=== PATIENT | female | born 1950 | race Caucasian/White ===

== ENCOUNTER 2019-10-13 05:58 | Emergency (ER) | payer MEDICARE, OTHER, SELFPAY ==
[2019-10-13] VITALS (10 sets, daily range): BP systolic 137–183; BP diastolic 64–83; PULSE 64–83; RESP 14–25; TEMP 36.7; O2SAT 90–99; BMI 29.2
--- NOTE | 2019-10-13 06:01 | DI.RAD.S_ITS ---
PROCEDURE: XR CHEST 1V INDICATIONS: Chest pain TECHNIQUE: One view of the chest was acquired. COMPARISON: [facility], , CHEST 2 VIEW, 06/28/2012, 14:28. FINDINGS: Surgical changes and devices: None. Lungs and pleura: Lungs are difficult to accurately assess due to large body habitus and reduced inspiratory volume, and lordotic positioning.. No pleural effusions or pneumothorax. Mediastinum: Mediastinal contours appear normal. Heart size is normal. Bones and chest wall: No suspicious bony lesions. Overlying soft tissues appear unremarkable. IMPRESSION: Reduced inspiration, large body habitus, lordotic positioning, no definite acute disease. Upright two view chest plain film study would more accurately assess this patient. Dictated by: Sd Batres M.D. on 10/13/2019 at 8:20 Approved by: Sd Batres M.D. on 10/13/2019 at 8:21
--- NOTE | 2019-10-13 06:20 | ED.NAVMDI ---
HPI - Nausea/Vomiting/Diarrhea <James Christianson DO - Last Filed: 10/14/19 01:38> General Chief complaint: Nausea/Vomiting/Diarrhea Stated complaint: tightness mid chest makes her throw up/vomiting Time Seen by Provider: 10/13/19 06:00 Source: patient Mode of arrival: Family Vehicle Limitations: no limitations History of Present Illness HPI Narrative: Patient is a 69-year-old female here for evaluation of a retrosternal/epigastric ?pressure? she states the symptoms have been occurring since 2100 hours last evening. She states it has been consistent since then. She states she was awake all night with discomfort. States shortly after the pressure started she developed nausea and vomiting and diarrhea. She states that the vomiting does seem to help her symptoms somewhat. When she vomits the pain seems to move higher in her chest. When she has episodes of diarrhea the discomfort does not change. No fevers. No recent travel. No recent antibiotics. No prior abdominal surgeries. Did take some Tums prior to arrival without any improvement. Related Data Previous Rx's Medication Instructions Recorded omeprazole 20 mg PO DAILY #30 cap 10/13/19 Allergies Allergy/AdvReac Type Severity Reaction Status Date / Time latex Allergy Unknown Verified 10/13/19 06:24 acetaminophen [From Percocet] AdvReac Unknown Vomiting Verified 10/13/19 06:23 oxycodone [From Percocet] AdvReac Unknown Vomiting Verified 10/13/19 06:23 Review of Systems <James Christianson DO - Last Filed: 10/14/19 01:38> Constitutional Constitutional: Denies fever(s) and Denies headache(s) ENT Ears, Nose, Mouth, and Throat: Denies headache(s) Cardiovascular Cardiovascular: Reports chest pain and Denies dyspnea Respiratory Respiratory: Denies cough and Denies dyspnea Gastrointestinal Gastrointestinal: Reports abdominal pain, Denies melena, Denies hematochezia, Reports diarrhea, Reports nausea and Reports vomiting Genitourinary Genitourinary: Denies dysuria Genitourinary: Denies dysuria Musculoskeletal Musculoskeletal: Denies arthralgias and Denies myalgias Integumentary/Breasts Skin/Breast: Denies pruritus, Denies lesions and Denies rash Neurologic Neurologic: Denies behavioral changes and Denies headache(s) Psychiatric Psychiatric: Denies behavioral changes Hematologic/Lymphatic Hematologic/Lymphatic: Denies easy bleeding and Denies easy bruising Allergic/Immunologic Allergic/Immunologic: Denies urticaria Patient History <James Christianson DO - Last Filed: 10/14/19 01:38> Medical History Allergic rhinitis (11/24/13) Hyperlipidemia (11/24/13) Stress incontinence of urine (11/24/13) Surgical History (Updated 06/23/17 @ 05:42 by Conversion Provider) History of bladder suspension procedure Status post appendectomy Status post tubal ligation Social History Smoking Status: Never smoker Smoking Status: Never smoker alcohol intake frequency: a few times a week Substance Use Type: does not use Exam <James Christianson DO - Last Filed: 10/14/19 01:38> Initial Vital Signs Initial Vital Signs: Vital Signs Temperature 98.1 F 10/13/19 06:05 Pulse Rate 77 10/13/19 06:05 Respiratory Rate 17 10/13/19 06:05 Blood Pressure 183/81 H 10/13/19 06:05 Pulse Oximetry 98 10/13/19 06:05 Const General: cooperative Limitations: mental status not altered HENMT Head: normal to inspection and normocephalic Resp Effort & Inspection: normal respiratory effort Auscultation: clear to auscultation bilaterally Cardio Rate: regular rate Rhythm: regular rhythm GI Inspection: non-distended Palpation: soft and tender Skin Lesions: no lesions Rashes: no rashes Neuro General: patient alert, patient awake and patient oriented x3 Cognition: normal cognition Speech: speech normal Extrem General: normal to inspection and capillary refill normal Psych Appearance: grossly normal and well kempt <Herbie Mason MD - Last Filed: 10/13/19 09:58> Initial Vital Signs Initial Vital Signs: Vital Signs Temperature 98.1 F 10/13/19 06:05 Pulse Rate 77 10/13/19 06:05 Respiratory Rate 17 10/13/19 06:05 Blood Pressure 183/81 H 10/13/19 06:05 Pulse Oximetry 98 10/13/19 06:05 Scores <James Christianson DO - Last Filed: 10/14/19 01:38> GCS [place] coma scale eye opening: Spontaneous [place] coma scale verbal response: Orientated [place] coma scale motor response: Obey commands [place] coma scale total score: 15 Course <James Christianson DO - Last Filed: 10/14/19 01:38> Orders Ordered: Discontinued Medications Al Hydrox/Mg Hydrox/Simethicone 20 ml/ Lidocaine HCl 15 ml 0 ml PO NOW ONE Stop: 10/13/19 06:20 Last Admin: 10/13/19 06:38 Dose: 35 ml Documented by: SHAHEEN Ketorolac Tromethamine (Toradol) 15 mg IV NOW ONE Stop: 10/13/19 07:37 Last Admin: 10/13/19 07:57 Dose: 15 mg Documented by: ASAD Pantoprazole Sodium (Protonix) 40 mg IV NOW ONE Stop: 10/13/19 06:20 Last Admin: 10/13/19 06:37 Dose: 40 mg Documented by: SHAHEEN Vital Signs Vital signs: Vital Signs - 8 hr 10/13/19 06:05 10/13/19 06:08 10/13/19 06:30 Temperature 98.1 F Pulse Rate 77 77 76 Respiratory Rate 17 20 25 H Blood Pressure 183/81 H Pulse Oximetry 98 98 99 10/13/19 06:36 10/13/19 07:00 10/13/19 07:30 Temperature Pulse Rate 71 68 82 Respiratory Rate 14 16 19 Blood Pressure 160/72 H 159/70 H 155/67 H Pulse Oximetry 99 97 99 10/13/19 08:00 10/13/19 08:01 10/13/19 08:30 Temperature Pulse Rate 64 64 78 Respiratory Rate Blood Pressure 168/75 H 159/83 H Pulse Oximetry 90 L 97 98 10/13/19 09:00 Temperature Pulse Rate 83 Respiratory Rate Blood Pressure 137/64 Pulse Oximetry 91 <Herbie Mason MD - Last Filed: 10/13/19 09:58> Course Course Narrative: Care was transitioned from Dr. Christianson at change of shift. We Reviewed her clinical presentation, as well as our workup. My exam is significant for lungs are normal, cardiac exam is normal, she has epigastric abdominal pain. Her history of a sensation moving back and forth her chest along with nausea and vomiting, and her indication that the discomfort was under the sternum, as well as ongoing epigastric pain suggest dyspepsia. Her complaint sounds like hiatal hernia or GERD. I think the epigastric pain was somewhat related to muscle strain from repetitive vomiting. Toradol did decrease the pain. Vomiting has ceased. I have discharged on prosthetic 40 mg daily for 1 week then 20 mg daily. She lives here and in [place], I suggested she is a local doctor. She should return the ER if symptoms escalate. Marifer Ballard MD Orders Ordered: Discontinued Medications Al Hydrox/Mg Hydrox/Simethicone 20 ml/ Lidocaine HCl 15 ml 0 ml PO NOW ONE Stop: 10/13/19 06:20 Last Admin: 10/13/19 06:38 Dose: 35 ml Documented by: SHAHEEN Ketorolac Tromethamine (Toradol) 15 mg IV NOW ONE Stop: 10/13/19 07:37 Last Admin: 10/13/19 07:57 Dose: 15 mg Documented by: ASAD Pantoprazole Sodium (Protonix) 40 mg IV NOW ONE Stop: 10/13/19 06:20 Last Admin: 10/13/19 06:37 Dose: 40 mg Documented by: SHAHEEN Vital Signs Vital signs: Vital Signs - 8 hr 10/13/19 06:05 10/13/19 06:08 10/13/19 06:30 Temperature 98.1 F Pulse Rate 77 77 76 Respiratory Rate 17 20 25 H Blood Pressure 183/81 H Pulse Oximetry 98 98 99 10/13/19 06:36 10/13/19 07:00 10/13/19 07:30 Temperature Pulse Rate 71 68 82 Respiratory Rate 14 16 19 Blood Pressure 160/72 H 159/70 H 155/67 H Pulse Oximetry 99 97 99 10/13/19 08:00 10/13/19 08:01 10/13/19 08:30 Temperature Pulse Rate 64 64 78 Respiratory Rate Blood Pressure 168/75 H 159/83 H Pulse Oximetry 90 L 97 98 10/13/19 09:00 Temperature Pulse Rate 83 Respiratory Rate Blood Pressure 137/64 Pulse Oximetry 91 MDM - Nausea/Vomiting/Diarrhea <James Christianson DO - Last Filed: 10/14/19 01:38> Lab Data Attestation: I reviewed the patient's lab results. Result diagrams: 10/13/19 06:30 10/13/19 06:30 Labs: Lab Results 10/13/19 10/13/19 10/13/19 Range/Units 06:30 06:30 06:30 WBC 11.8 H (4.5-11.0) X10^3/uL RBC 4.82 (4.0-5.2) X10^6/uL Hgb 13.8 (12.0-16.0) g/dL Hct 40.6 (36-46) % MCV 84.1 (80-100) fL MCH 28.6 (26-34) PG MCHC 34.0 (30-36) % RDW 14.7 (11.6-14.8) % Plt Count 448 H (150-400) X10^3/uL Neut % (Auto) 91.9 H (50-75) % Lymph % (Auto) 4.8 L (25-40) % [place] % (Auto) 2.5 L (3-14) % Eos % (Auto) 0.2 L (2-4) % Baso % (Auto) 0.6 (0-2) % Neut # (Auto) 69806 H (5804-9621) /uL Lymph # (Auto) 600 L (8458-4023) /uL [place] # (Auto) 300 (0-900) /uL Eos # (Auto) 0 (0-450) /uL Baso # (Auto) 100 (0-100) /uL Sodium 134 L (137-145) mmol/L Potassium 4.0 (3.4-5.1) mmol/L Chloride 103 (98-107) mmol/L Carbon Dioxide 24 (22-32) mmol/L BUN 19 H (7-17) mg/dL Creatinine 0.78 (0.52-1.04) mg/dL Estimated GFR > 60.0 (>60) mL/min BUN/Creatinine Ratio 24.4 H (6-22) Glucose 140 H (80-110) mg/dL Calcium 9.2 (8.4-10.2) mg/dL Total Bilirubin 0.7 (0.2-1.3) mg/dL AST 39 H (14-36) IU/L ALT 25 (<35) IU/L Alkaline Phosphatase 60 (38-126) U/L Total Creatine Kinase 199 H (30-135) U/L CK-MB (CK-2) 3.19 H (<2.37) ng/mL CK-MB (CK-2) Rel Index 1.6 (1.5-5.0) % Troponin I < 0.012 (0.01-0.034) ng/mL Total Protein 6.9 (6.3-8.2) g/dL Albumin 4.5 (3.5-5.0) g/dL Globulin 2.4 (1.7-4.1) g/dL Albumin/Globulin Ratio 1.9 (1.0-2.8) Lipase 79 (23-300) U/L Imaging Data Chest x-ray: Attestation: I personally reviewed and interpreted this imaging study as follows: My Impression: Poor inspiratory volumes, no pneumothorax, no acute pathology ECG Data Attestation: I personally reviewed and interpreted this ECG as follows: Prior ECG tracings: not available for review Interpretation: Sinus rhythm Ventricular rate of 65 Normal axis Normal QRS Normal QTC No ST T wave changes MDM Narrative Medical decision making narrative: Symptoms seem very GI related. Trop pending. Care turned over to Day provder at change of shift to follow up and dispo. <Herbie Mason MD - Last Filed: 10/13/19 09:58> Lab Data Labs: Lab Results 10/13/19 10/13/19 10/13/19 Range/Units 06:30 06:30 06:30 WBC 11.8 H (4.5-11.0) X10^3/uL RBC 4.82 (4.0-5.2) X10^6/uL Hgb 13.8 (12.0-16.0) g/dL Hct 40.6 (36-46) % MCV 84.1 (80-100) fL MCH 28.6 (26-34) PG MCHC 34.0 (30-36) % RDW 14.7 (11.6-14.8) % Plt Count 448 H (150-400) X10^3/uL Neut % (Auto) 91.9 H (50-75) % Lymph % (Auto) 4.8 L (25-40) % [place] % (Auto) 2.5 L (3-14) % Eos % (Auto) 0.2 L (2-4) % Baso % (Auto) 0.6 (0-2) % Neut # (Auto) 29026 H (4135-0789) /uL Lymph # (Auto) 600 L (4383-4095) /uL [place] # (Auto) 300 (0-900) /uL Eos # (Auto) 0 (0-450) /uL Baso # (Auto) 100 (0-100) /uL Sodium 134 L (137-145) mmol/L Potassium 4.0 (3.4-5.1) mmol/L Chloride 103 (98-107) mmol/L Carbon Dioxide 24 (22-32) mmol/L BUN 19 H (7-17) mg/dL Creatinine 0.78 (0.52-1.04) mg/dL Estimated GFR > 60.0 (>60) mL/min BUN/Creatinine Ratio 24.4 H (6-22) Glucose 140 H (80-110) mg/dL Calcium 9.2 (8.4-10.2) mg/dL Total Bilirubin 0.7 (0.2-1.3) mg/dL AST 39 H (14-36) IU/L ALT 25 (<35) IU/L Alkaline Phosphatase 60 (38-126) U/L Total Creatine Kinase 199 H (30-135) U/L CK-MB (CK-2) 3.19 H (<2.37) ng/mL CK-MB (CK-2) Rel Index 1.6 (1.5-5.0) % Troponin I < 0.012 (0.01-0.034) ng/mL Total Protein 6.9 (6.3-8.2) g/dL Albumin 4.5 (3.5-5.0) g/dL Globulin 2.4 (1.7-4.1) g/dL Albumin/Globulin Ratio 1.9 (1.0-2.8) Lipase 79 (23-300) U/L Discharge Plan Departure Patient Disposition: Home Clinical Impression: Abdominal pain, epigastric Discharge Date/Time: 10/13/19 09:36 Instructions: DI for Gastroesophageal Reflux Disease (GERD) Activity Restrictions/Additional Instructions: Your symptoms likely represent acid reflux or hiatal hernia. I am going to start you on Prilosec. Take 2 tabs daily for the 1st week, then 1 tablet daily. You need to find a local physician for follow-up. If symptoms escalate she may need endoscopy, a scope into stomach. Return the ER if symptoms escalate. Prescriptions: New omeprazole 20 mg capsule,delayed release(DR/EC) 20 mg PO DAILY Qty: 30 RF: 0
[2019-10-13] MEDS: PANTOPRAZOLE 40 MG VIAL IV (06:37)
[2019-10-13] MEDS: MAG HYDROX/ALUMINUM/SIMETH SUS 20 ML, LIDOCAINE VISCOUS 2% 15 ML PO (06:38)
[2019-10-13 06:43] LABS: Add Manual Diff / Slide Review NO; Basophils Absolute Auto 100 /uL (0-100); Basophils Percent Auto 0.6 % (0-2); Eosinophils Absolute Auto 0 /uL (0-450); Eosinophils Percent Auto 0.2 % (2-4); Hematocrit 40.6 % (36-46); Hemoglobin 13.8 g/dL (12.0-16.0); Lymphocytes Absolute Auto 600 /uL (1100-4500); Lymphocytes Percent Auto 4.8 % (25-40); Mean Corpuscular Hemoglobin 28.6 PG (26-34); Mean Corpuscular Volume 84.1 fL (80-100); Monocytes Absolute Auto 300 /uL (0-900); Monocytes Percent Auto 2.5 % (3-14); Neutrophils Absolute Auto 10800 /uL (1500-7000); Neutrophils Percent Auto 91.9 % (50-75); Platelet Count 448 X10^3/uL (150-400); Red Blood Cell Count 4.82 X10^6/uL (4.0-5.2); Red Cell Distribution Width 14.7 % (11.6-14.8); White Blood Cell Count 11.8 X10^3/uL (4.5-11.0)
[2019-10-13 07:02] LABS: Alanine Aminotransferase 25 IU/L (<35); Albumin 4.5 g/dL (3.5-5.0); Albumin Globulin Ratio 1.9 (1.0-2.8); Alkaline Phosphatase 60 U/L (38-126); Aspartate Aminotransferase 39 IU/L (14-36); BUN Creatinine Ratio 24.4 (6-22); Bilirubin Total 0.7 mg/dL (0.2-1.3); Blood Urea Nitrogen 19 mg/dL (7-17); Calcium 9.2 mg/dL (8.4-10.2); Carbon Dioxide 24 mmol/L (22-32); Chloride 103 mmol/L (98-107); Creatine Kinase 199 U/L (30-135); Estimated Glomerular Filt Rate > 60.0 mL/min (>60); Globulin 2.4 g/dL (1.7-4.1); Glucose 140 mg/dL (80-110); HEMOLYSIS < 15 (0-50); Lipase 79 U/L (23-300); Sodium 134 mmol/L (137-145); Total Protein 6.9 g/dL (6.3-8.2)
[2019-10-13 07:14] LABS: Troponin I < 0.012 ng/mL (0.01-0.034)
[2019-10-13 07:18] LABS: CKMB % Relative Index 1.6 % (1.5-5.0); Creatine Kinase MB 3.19 ng/mL (<2.37)
[2019-10-13] MEDS: KETOROLAC 60 MG/2 ML VIAL 15 MG IV (07:57)
== END 2019-10-13 09:36 | disposition home or self-care (01) ==
PROVIDERS: Emergency Provider Emergency Medicine; Referring Provider Emergency Medicine
DX: R07.89 Other chest pain (principal); R10.13 Epigastric pain
CPT/HCPCS: 36415; 71045; 80053; 82550; 82553; 83690; 84484; 85025; 93005; 93010; 96374; 96375; 99284; C9113; J1885

== ENCOUNTER → 2019-11-10 08:38 | Outpatient (CLI) | payer MEDICARE, OTHER, SELFPAY ==
[2019-11-10 09:33] LABS: Add Manual Diff / Slide Review NO; Basophils Absolute Auto 100 /uL (0-100); Basophils Percent Auto 1.3 % (0-2); Eosinophils Absolute Auto 300 /uL (0-450); Eosinophils Percent Auto 4.9 % (2-4); Hematocrit 40.7 % (36-46); Hemoglobin 13.6 g/dL (12.0-16.0); Lymphocytes Absolute Auto 1200 /uL (1100-4500); Lymphocytes Percent Auto 18.3 % (25-40); Mean Corpuscular HGB Conc 33.4 % (30-36); Monocytes Absolute Auto 400 /uL (0-900); Monocytes Percent Auto 5.8 % (3-14); Neutrophils Absolute Auto 4400 /uL (1500-7000); Neutrophils Percent Auto 69.7 % (50-75); Platelet Count 426 X10^3/uL (150-400); Red Blood Cell Count 4.84 X10^6/uL (4.0-5.2); Red Cell Distribution Width 14.2 % (11.6-14.8); White Blood Cell Count 6.4 X10^3/uL (4.5-11.0)
[2019-11-10 09:56] LABS: Alanine Aminotransferase 36 IU/L (<35); Albumin Globulin Ratio 1.5 (1.0-2.8); Alkaline Phosphatase 67 U/L (38-126); Aspartate Aminotransferase 42 IU/L (14-36); BUN Creatinine Ratio 15.8 (6-22); Bilirubin Total 0.6 mg/dL (0.2-1.3); Blood Urea Nitrogen 15 mg/dL (7-17); Calcium 9.2 mg/dL (8.4-10.2); Carbon Dioxide 30 mmol/L (22-32); Chloride 103 mmol/L (98-107); Cholesterol 217 mg/dL (140-199); Estimated Glomerular Filt Rate 58.3 mL/min (>60); Globulin 2.6 g/dL (1.7-4.1); Glucose 104 mg/dL (80-110); HDL Cholesterol 54 mg/dL (40-60); HEMOLYSIS < 15 (0-50); LDL Cholesterol Calculated 145 mg/dL (<100); Potassium 4.6 mmol/L (3.4-5.1); Sodium 139 mmol/L (137-145); Total Protein 6.6 g/dL (6.3-8.2); Triglycerides 88 mg/dL (35-150)
[2019-11-10 10:30] LABS: TSH w/ Reflex to FT4 3.12 uIU/mL (0.47-4.68)
== END ==
PROVIDERS: PCP Registered Nurse Diabetes Educator; Referring Provider Registered Nurse Diabetes Educator; Visit Provider Registered Nurse Diabetes Educator
DX: Z00.00 Encounter for general adult medical examination without abnormal findings (principal); E78.5 Hyperlipidemia, unspecified
CPT/HCPCS: 36415; 80053; 80061; 84443; 85025

== ENCOUNTER → 2019-11-22 07:40 | Outpatient (CLI) | payer MEDICARE, OTHER, SELFPAY ==
--- NOTE | 2019-11-22 07:43 | DI.US.S_ITS ---
PROCEDURE: US ABDOMEN LIMITED INDICATIONS: LIVER FUNCTION TEST. PRIOR EPIGASTRIC PAIN NAUSEA/VOMITING TECHNIQUE: Real-time focused scanning was performed of the abdomen, with image documentation. COMPARISON: None. FINDINGS: The liver is normal in size and demonstrates no focal lesions. The liver demonstrates normal echogenicity. There is a nonmobile shadowing gallstone seen that measures up to 2.4 cm. Minimal gallbladder wall thickening is seen, measuring 3.3 mm No specific pericholecystic fluid is seen. The sonographic Olivia sign is negative. There is no biliary dilatation, the common bile duct measures 6 mm. The pancreas is not well seen, secondary to overlying bowel gas. IMPRESSION: A single shadowing 2.4 cm gallstone is seen, with minimal gallbladder wall thickening. No additional sonographic signs of cholecystitis. Negative for biliary dilatation. Please correlate with physical examination findings, patient presentation, and laboratory values. Dictated by: Mick Keene M.D. on 11/22/2019 at 10:12 Approved by: Mick Keene M.D. on 11/22/2019 at 10:14
[2019-11-22 09:54] LABS: HEMOLYSIS < 15 (0-50); Iron 86 ug/dL (37-170)
[2019-11-22 10:05] LABS: Transferrin 255 mg/dL (206-381)
[2019-11-22 10:29] LABS: Hepatitis B Surface Antigen NEGATIVE s/c (NEGATIVE)
[2019-11-22 10:53] LABS: Percent Iron Saturation 28 % (15-50); Total Iron Binding Capacity 310 ug/dL (265-497)
[2019-11-22 10:57] LABS: Hep C Virus Ab w/Reflex Quant NEGATIVE s/c (NEGATIVE)
== END ==
PROVIDERS: PCP Registered Nurse Diabetes Educator; Referring Provider Registered Nurse Diabetes Educator; Visit Provider Registered Nurse Diabetes Educator
DX: R74.8 Abnormal levels of other serum enzymes (principal); R11.2 Nausea with vomiting, unspecified; K80.20 Calculus of gallbladder without cholecystitis without obstruction
CPT/HCPCS: 36415; 76705; 83540; 83550; 86803; 87340

== ENCOUNTER → 2019-12-03 14:59 | Outpatient (CLI) | payer MEDICARE, OTHER, SELFPAY ==
[2019-12-05 07:52] LABS: COVID19 Sendout Not Detected (Not Detect)
== END ==
PROVIDERS: PCP Registered Nurse Diabetes Educator; Visit Provider Physician Assistant
DX: Z01.812 Encounter for preprocedural laboratory examination (principal)
CPT/HCPCS: 87635

== ENCOUNTER 2019-12-06 13:48 | Inpatient (IN) | payer MEDICARE, OTHER, SELFPAY ==
[2019-12-02 10:47] VITALS: BMI 26.3
[2019-12-06] VITALS (17 sets, daily range): BP systolic 100–127; BP diastolic 45–74; PULSE 79–91; RESP 7–22; TEMP 36.2–37.1; O2SAT 70–100; BMI 26.3
--- NOTE | 2019-12-06 | PATH_ITS ---
[facility] Accession Number: [id number] . 01 Material submitted: . gallbladder - GALLBLADDER . 02 Diagnosis: Gallbladder, Cholecystectomy: Cholelithiasis with chronic, mild active cholecystitis. No evidence of neoplasm. MRV 12/09/2019 1141 Local . 02 Electronically signed: . Oliver Akhtar MD, PhD, Pathologist NPI- [id number] . 01 Gross description: . Received in formalin, labeled gallbladder, and consists of a fragmented gallbladder measuring 6.0 x 4.0 x 2.5 cm in aggregate. The serosa is riojas-white to riojas-pink and focally hemorrhagic with purulent exudate. Due to the fragmented nature of the specimen, an obvious cystic duct is not identified. Further opening reveals a pink-red to riojas-white velvety to trabeculated mucosa. The wall thickness measures up to 0.4 cm. Received within the specimen container is a 3.5 x 2.5 x 2.0 cm riojas-green bosselated cholelith. Director [employer] Services sections are submitted, to include the area of presumed cystic duct (inked green) in cassette A1. ([id number]) /MRV 12/09/2019 1140 Local . 02 Pathologist provided ICD-10: K80.50, K80.60 . 02 CPT . 084833 Performed at: 01 [facility] [address] [place] [address], [place], [place] [id number] MD Lucas Pelaez MD Phone: [phone] Performed at: 02 [facility] [address] [place], [place] [id number] MD Sabra Ramirez MD Phone: [phone]
[2019-12-06] MEDS: LACTATED RINGERS 1,000 ML 100 ML IV ×2 (14:30→18:05)
--- NOTE | 2019-12-06 15:50 | P.OP_ITS ---
Operative Date/Time/Diagnoses Date of procedure: 12/06/19 Time of procedure: 15:50 Pre-op diagnosis: endometrial cancer Post-op diagnosis: same Procedure & Clinicians Procedure: port a cath placement Same procedure as scheduled: Yes Indications: 69-year-old woman with endometrial cancer here for Port-A-Cath placement Surgeon: Dieter Becerra Anesthesia Type: General Operative Notes Findings: Chest x-ray no pneumothorax, tip of catheter within the SVC Specimen(s): none sent Estimated Blood Loss (mL): 20 Procedure in detail: Patient was brought to the operating room placed supine on table. Bilateral lower extremity compressive devices were applied. General anesthesia was induced and he was intubated with an LMA. He was then prepped and draped in usual sterile fashion. Time-out was performed ensure the correct patient procedure necessary equipment within the operating room. He received 2 g of Ancef prior to incision. Under ultrasound guidance the right internal jugular vein was accessed under direct visualization. The guidewire was then threaded through the needle. Its placement was then confirmed using fl uoroscopy. The dilator was then placed over the guidewire. The catheter was then inserted through the sheath. Placement was again confirmed with fluoroscopy. A subcutaneous pocket was made in the right chest wall. The tunneler device was used to move the catheter from the neck to the chest pocket. The port was attached after it was primed with heparined saline. The port was tested to ensure that it flushed easily and had good blood return. The port was then secured to the underlying fascia using interupted 0 Prolene suture. Hemostasis was achieved. The wound was irrigated with sterile saline. The subcutaneous tissues were reapproximated with the 3 0 Vicryl and then skin closed with 4-0 Monocryl. The skin was sealed with Dermabond. Patient tolerated procedure well. The sponge and instrument count at the end operation was correct. Patient emerged from general anesthesia was extubated and taken to the postoperative care unit in stable condition Complications: none Post-operative Condition: stable Disposition: same day surgery
--- NOTE | 2019-12-06 15:54 | PM.PREOP ---
Pre-operative Note COVID-19 COVID-19 status: Negative Interval Note History & Physical reviewed/Exam performed by Physician: Yes Changes to H&P: No
[2019-12-06] MEDS: CEFAZOLIN 2 GM/100 ML FROZ.PIGGY IV ×2 (16:02→19:32)
--- NOTE | 2019-12-06 16:25 | SUR.OPER ---
Supine on padded OR bed, head on pillow, left arm padded and tucked at side,right arm on padded arm board and secured at les than 90 degrees abduction legs uncrossed, safety belt at thigh, tape over blanket over lower legs .
[2019-12-06] MEDS: BUPIVACAINE 0.25% (PF) VIAL 30 ML INJ (16:33)
[2019-12-06] MEDS: SODIUM CHLORIDE 0.9% 1,000 ML 100 ML IV (20:00)
--- NOTE | 2019-12-06 20:14 | P.OP_ITS ---
Operative Date/Time/Diagnoses Date of procedure: 12/06/19 Time of procedure: 20:14 Pre-op diagnosis: Biliary colic Post-op diagnosis: same Procedure & Clinicians Procedure: Laparoscopic subtotal cholecystectomy Same procedure as scheduled: Yes Indications: This is a 69-year-old woman with episodes of biliary colic is found to have a 2-1/2 cm gallstone here for elective cholecystectomy Surgeon: Dieter Becerra Toy Assembly Supervisor: Demond Toro Anesthesia Type: General Operative Notes Estimated Blood Loss (mL): 50 Procedure in detail: The patient was placed supine on the table and bilateral lower extremity compression devices were applied. Anesthesia was induced they were intubated with an endotracheal tube and received 2g of Ancef. A time-out was performed. They were prepped and draped in sterile fashion. An infraumbilical incision was made, the umbilical stalk was elevated and the fascia was sharply incised entering the abdomen atraumatically. A blunt tip 12mm balloon trocar was then inserted, pneumoperitoneum was established and inspection of the abdomen demonstrated no evidence of injury. They were placed head up and right side up and then a 11 mm port was placed high in the epigastrium and two 5mm in the right upper quadrant. The gallbladder was extremely thick and difficult to grasp. Gallbladder was percutaneously aspirated to facilitate its manipulation. Gallbladder was then grasped and elevated superiorly over the liver and out laterally. The adhesions between the omentum and the gallbladder were sharply lysed. The infundibulum was then grasped and retracted laterally the infundibulum was extremely thick. The medial and lateral planes adjacent to the infundibulum were incisied to facilitate its medial and lateral retraction. I began skeltonizing at the base of the gallbladder using careful blunt dissection. The anatomy here was very difficult because of the extremely contracted nature and the density of the tissue. I called for the assistance of my partner. Multiple ductal structures were carefully issolated which in full review likely represented the common hepatic duct, an extremely foreshortned cystic duct, and an abberent right hepatic. I attempted to performed a cholangiogram through the gallbladder to clarify the anatomy and but this was unsuccessful as the contrast material leaked from the gallbladder. Unable to get a cholangiogram I moved to a top- down dissection. The gallbladder was entered there was a 2-1/2 cm stone within it completely occluding its lumen and a subtotal cholecystectomy was performed towards the base of the gallbladder. At the base the gallbladder working within the lumen of the gallbladder I was still unable to identify the cystic duct. The back wall the gallbladder was then excised. I closed the remnant of the gallbladder with interrupted Vicryl suture in intracorporeal fashion. Careful inspection of the ductal structures demonstrated a <1 mm length partial thickeness injury to the lateral aspect of the likely cystic duct near its junction to the common. The wall was intact here there was no bile leak. A 19F AMANDA was placed in the gallbladder fossa. The gallbladder and the stone were removed via the umbilicus with an Endocatch. The umbilical fascia was closed under direct visualization with [id number] 0 Vicryl suture the skin closed with Monocryl followed by Dermabond.
[2019-12-06] MEDS: HYDROMORPHONE 2 MG INJ IV ×4 (20:16→20:34)
[2019-12-06] MEDS: LORazepam 2 MG/ML INJ 0.25 MG IV ×2 (20:18→20:53)
[2019-12-06] MEDS: OXYCODONE/ACETAMINOPHEN 5/325 TABLET 1 TAB PO (20:51)
--- NOTE | 2019-12-06 20:58 | SUR.PHASEI ---
Report called to Salma
--- NOTE | 2019-12-06 21:23 | SUR.PHASEI ---
Patient transferred to the floor on O2 and with belongings bag. Report given to TAMERA Marsh. VS stable. Abd sites CDI, minimal drainage to drain. J-loop applied to IV and IV saline locked.
--- NOTE | 2019-12-06 23:58 | PC.NURSE ---
Report received from ED, care assumed at 2114. VSS. A&Ox3. Reports RUQ pain with inspiration. Ice pack applied. Up to bathroom; void.
[2019-12-07] VITALS (8 sets, daily range): BP systolic 114–132; BP diastolic 56–68; PULSE 69–84; RESP 16–18; TEMP 35.9–37.1; O2SAT 92–97
[2019-12-07] MEDS: ONDANSETRON 4 MG/2 ML INJ IV (05:25)
[2019-12-07] MEDS: OXYCODONE/ACETAMINOPHEN 5/325 TABLET 1 TAB PO ×3 (05:25→13:30)
[2019-12-07 05:31] LABS: Alanine Aminotransferase 83 IU/L (<35); Albumin 3.6 g/dL (3.5-5.0); Albumin Globulin Ratio 1.7 (1.0-2.8); Alkaline Phosphatase 57 U/L (38-126); Aspartate Aminotransferase 112 IU/L (14-36); BUN Creatinine Ratio 18.2 (6-22); Bilirubin Total 0.4 mg/dL (0.2-1.3); Blood Urea Nitrogen 14 mg/dL (7-17); Calcium 8.6 mg/dL (8.4-10.2); Carbon Dioxide 26 mmol/L (22-32); Chloride 105 mmol/L (98-107); Estimated Glomerular Filt Rate > 60.0 mL/min (>60); Globulin 2.1 g/dL (1.7-4.1); Glucose 132 mg/dL (80-110); HEMOLYSIS < 15 (0-50); Potassium 4.7 mmol/L (3.4-5.1); Sodium 136 mmol/L (137-145); Total Protein 5.7 g/dL (6.3-8.2)
[2019-12-07 05:38] LABS: Add Manual Diff / Slide Review NO; Basophils Absolute Auto 0 /uL (0-100); Basophils Percent Auto 0.4 % (0-2); Eosinophils Absolute Auto 0 /uL (0-450); Hematocrit 37.8 % (36-46); Lymphocytes Absolute Auto 400 /uL (1100-4500); Lymphocytes Percent Auto 3.6 % (25-40); Mean Corpuscular HGB Conc 34.5 % (30-36); Mean Corpuscular Hemoglobin 28.8 PG (26-34); Mean Corpuscular Volume 83.4 fL (80-100); Monocytes Absolute Auto 400 /uL (0-900); Monocytes Percent Auto 3.9 % (3-14); Neutrophils Absolute Auto 9800 /uL (1500-7000); Neutrophils Percent Auto 92.1 % (50-75); Platelet Count 331 X10^3/uL (150-400); Red Blood Cell Count 4.53 X10^6/uL (4.0-5.2); Red Cell Distribution Width 14.9 % (11.6-14.8); White Blood Cell Count 10.7 X10^3/uL (4.5-11.0)
[2019-12-07] MEDS: SODIUM CHLORIDE 0.9% 1,000 ML 100 ML IV (07:43)
[2019-12-07] MEDS: PANTOPRAZOLE 20 MG TABLET PO (09:26)
[2019-12-07] MEDS: OXYBUTYNIN 5 MG TABLET 10 MG PO (09:26)
[2019-12-07] MEDS: PIPERACILLIN-TAZO 3.375 GM/50 ML FROZ.PIGGY IV ×3 (09:26→21:26)
--- NOTE | 2019-12-07 10:45 | P.PN_ITS ---
Subjective Subjective Date Patient Seen: 12/07/19 Time Patient Seen: 10:45 Interval history: No acute overnight events. She has right upper quadrant pain no nausea vomiting. Tolerating clear liquids. Exam Vital Signs (past 8 hours): - 12/07/19 05:24 12/07/19 07:52 12/07/19 08:00 Temperature 96.7 F L 98.7 F Pulse Rate 82 84 78 Respiratory Rate 16 16 16 Blood Pressure 132/68 120/68 Pulse Oximetry 94 92 93 Oxygen Delivery Method Room Air Oxygen Flow Rate 0 Narrative Exam Narrative: General adult female alert oriented no acute distress Abdomen appropriately tender to palpation incisions clean dry intact. Right upper quadrant drain scant 10 mL output serosanguineous no bile Objective Labs Result Diagrams: 12/07/19 04:40 12/07/19 04:40 Labs: Laboratory Results - last 24 hr 12/07/19 12/07/19 04:40 04:40 WBC 10.7 RBC 4.53 Hgb 13.0 Hct 37.8 MCV 83.4 MCH 28.8 MCHC 34.5 RDW 14.9 H Plt Count 331 Neut % (Auto) 92.1 H Lymph % (Auto) 3.6 L [place] % (Auto) 3.9 Eos % (Auto) 0.0 L Baso % (Auto) 0.4 Neut # (Auto) 9800 H Lymph # (Auto) 400 L [place] # (Auto) 400 Eos # (Auto) 0 Baso # (Auto) 0 Sodium 136 L Potassium 4.7 Chloride 105 Carbon Dioxide 26 BUN 14 Creatinine 0.77 Estimated GFR > 60.0 BUN/Creatinine Ratio 18.2 Glucose 132 H Calcium 8.6 Total Bilirubin 0.4 AST 112 H ALT 83 H Alkaline Phosphatase 57 Total Protein 5.7 L Albumin 3.6 Globulin 2.1 Albumin/Globulin Ratio 1.7 Assessment & Plan Post-op Postoperative Procedures: Procedures Operation Date: 12/06/19 15:45 Actual Procedures Side Surgeon p Laparoscopic Cholecystectomy Dieter Becerra MD Postoperative status narrative: 69-year-old female postoperative day 1 after a l aparoscopic subtotal cholecystectomy. She had an extremely difficult cholecystectomy, the entirety of the gallbladder could not be removed, the remant of the gallbladder was oversewn drain left in the gallbladder fossa. -Regular diet -Drain teaching will dc with drain -Anticipate dc home tomorrow if drain non bilious and pain adequately controlled.
--- NOTE | 2019-12-07 11:17 | CM.DPC ---
DCP/Assessment: Reviewed chart. Patient is a 69yr old female admitted to [facility] for elective lap blaise performed on 12-06-[address] Becerra. PCP is Jean Carlos MARES at [facility]. Primary payor is 1)Medicare 2)[employer]. Met with patient explained CM/SW role. Patient alert and oriented resting in bed at time of visit. Patient resides alone in [place]. Patient does report that she has very supportive family nearby to assist as needed. Patient complains of pain during assessment. Patient hopeful that she will not be discharged too soon. Instructed pateint to have that conversation with provider. Patient made aware that once she no longer meets acute care criteria she will most likely be discharged. Patient does not anticipate any d/c planning needs. Per patient's request BRAILLE TRANSCRIBER placed call to [facility] and let them know patient currently hospitalized. P: Anticipate home when medically stable. LORRAINE Wahl Discharge Planning/Care Management CM Discharge Assessment Start: 12/07/19 11:15 Freq: Status: Active Protocol: Document 12/07/19 11:15 KJS (Rec: 12/07/19 11:17 KJS [id number]) Discharge Planning Assessment Assigned Irrigationist LORRAINE Wahl Contact Information Artur Garcia (son) Advance Directives? No History Provided By Patient,Medical Record Prior Living Arrangements House Household Members none Type of transporation used prior to Drives own vehicle admit Independent with ADL's Yes Is patient alert and oriented? Yes Caregiver for Another No Barriers to Discharge No Discharge Plan Home Transportation Arrangement Family to provide transport when paient medically stable. Whiteboard Updated in Patient Room with Yes name and ext. 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 No Hx Sleep Apnea No Currently Taking a Beta Mary No Hx Chest Pain No Hx SOB No Hx Syncope or Dizziness No Anti-Coagulant Therapy No Has a Asphalt Tamping Machine Operator No Cardiac Testing No Hx Pacemaker/ICD No Pacemaker Rep Required? No Cardiac Clearance Received Not Applicable Urinary Catheter Present No Hx Urinary Self Catheterization No Diabetes No Patient No Lactating No Presence of External or Internal Medical No Devices Have you had any close contact with Unknown someone diagnosed with COVID-19? Lives With none Patient Discharge Plan Description Return Home Advance Directives? No
[2019-12-07] MEDS: OXYCODONE/ACETAMINOPHEN 5/325 TABLET 2 TAB PO ×2 (17:33→21:27)
--- NOTE | 2019-12-07 19:22 | PC.NURSE ---
Patient in bed most of the shift. Up to the chair for dinner. Ambulated in room after dinner. Pain controlled well with oxycodone. Patient has been A&O, calm and cooperative.
[2019-12-08] VITALS: BP 124/63; PULSE 76; RESP 20; TEMP 35.8; O2SAT 93
[2019-12-08 01:00] VITALS: O2SAT 93
[2019-12-08] MEDS: OXYCODONE/ACETAMINOPHEN 5/325 TABLET 2 TAB PO ×2 (01:09→08:30)
[2019-12-08] MEDS: PIPERACILLIN-TAZO 3.375 GM/50 ML FROZ.PIGGY IV ×2 (03:04→08:23)
[2019-12-08 05:00] VITALS: O2SAT 92
[2019-12-08 05:04] LABS: Add Manual Diff / Slide Review NO; Basophils Absolute Auto 100 /uL (0-100); Basophils Percent Auto 1.1 % (0-2); Eosinophils Absolute Auto 300 /uL (0-450); Eosinophils Percent Auto 3.6 % (2-4); Hematocrit 37.4 % (36-46); Hemoglobin 12.5 g/dL (12.0-16.0); Lymphocytes Absolute Auto 1200 /uL (1100-4500); Lymphocytes Percent Auto 15.4 % (25-40); Mean Corpuscular HGB Conc 33.5 % (30-36); Mean Corpuscular Hemoglobin 28.2 PG (26-34); Mean Corpuscular Volume 84.1 fL (80-100); Monocytes Absolute Auto 500 /uL (0-900); Monocytes Percent Auto 6.8 % (3-14); Neutrophils Absolute Auto 5800 /uL (1500-7000); Neutrophils Percent Auto 73.1 % (50-75); Platelet Count 274 X10^3/uL (150-400); Red Blood Cell Count 4.45 X10^6/uL (4.0-5.2); Red Cell Distribution Width 14.9 % (11.6-14.8); White Blood Cell Count 7.9 X10^3/uL (4.5-11.0)
[2019-12-08 05:07] VITALS: BP 126/79; PULSE 68; RESP 20; TEMP 37.2; O2SAT 92
[2019-12-08 05:11] LABS: Alanine Aminotransferase 93 IU/L (<35); Albumin 3.1 g/dL (3.5-5.0); Albumin Globulin Ratio 1.3 (1.0-2.8); Alkaline Phosphatase 55 U/L (38-126); Aspartate Aminotransferase 100 IU/L (14-36); BUN Creatinine Ratio 12.4 (6-22); Bilirubin Total 0.9 mg/dL (0.2-1.3); Blood Urea Nitrogen 12 mg/dL (7-17); Calcium 8.1 mg/dL (8.4-10.2); Carbon Dioxide 29 mmol/L (22-32); Chloride 106 mmol/L (98-107); Estimated Glomerular Filt Rate 56.9 mL/min (>60); Globulin 2.3 g/dL (1.7-4.1); Glucose 105 mg/dL (80-110); HEMOLYSIS < 15 (0-50); Potassium 4.3 mmol/L (3.4-5.1); Sodium 137 mmol/L (137-145); Total Protein 5.4 g/dL (6.3-8.2)
[2019-12-08] MEDS: ENOXAPARIN 40 MG/0.4 ML SYRINGE SUBCUT (08:22)
[2019-12-08] MEDS: PANTOPRAZOLE 20 MG TABLET PO (08:23)
[2019-12-08] MEDS: OXYBUTYNIN 5 MG TABLET 10 MG PO (08:23)
[2019-12-08 08:30] VITALS: O2SAT 91
[2019-12-08] MEDS: SIMETHICONE 80 MG TABLET PO (08:58)
[2019-12-08 09:00] VITALS: BP 126/69; PULSE 74; RESP 16; TEMP 36.4; O2SAT 91
--- NOTE | 2019-12-08 11:00 | PC.NURSE ---
Pt is dressed and ready for discharge home with family. Pt has received discharge teaching on drain care and states she feels comfortable with continuing that until her follow with Dr. Becerra in a week. Reviewed s/s of infection, discussed watching her drain o/p for increased o/p >400 per day or change in drainage to bilious fluid or straight blood. Removed bulky dsg around drain site and replaced with coversite to enable Pt to shower and keep her incision sit clean and dry. Encouraged Pt to drink plenty of fluids to prevent constipation or dehydration and no driving while on narcotics. Pt also reminded to limit lifting to <10 pounds until follow up with Dr. Becerra for further instructions. Reviewed stroke education. Pt to discharge out via w/c by AUTOMATIC VULCANIZING OPERATOR to POV of family with all belongings.
--- NOTE | 2019-12-08 11:30 | P.DS_ITS ---
History of Present Illness History of Present Illness Chief complaint: LAP TERESA Discharge Providers Provider Date of admission: 12/06/19 13:48 Discharge Date: 12/08/19 Primary care physician: SUZAN Weiss Consults: 12/06/19 23:51 Consult to Respiratory Therapy Evaluate & Treat Comment: Physician Instructions: Evaluate and treat Discharge provider: Dieter Becerra MD Summary Hospital Course Discharge Diagnosis: Status post laparoscopic subtotal cholecystectomy Hospital Course: She underwent a laparoscopic subtotal cholecystectomy 12/05. The operation was significantly challenging given the extremely foreshortened cystic duct. Unable to safely expose the cystic duct, the entirety of the gallbladder could not be removed. A subtotal cholecystectomy was performed the 2.5 cm stone was removed and the remnant of the gallbladder was then closed with suture an intra-abdominal drain was left in the gallbladder fossa. Postoperatively the patient did well she had normal liver function tests her drain remains low output and without bile. If she develops worsening abdominal pain or she has significant bile output from the drain she will require ERCP for stent placement. Status at Discharge Cognitive/behavioral status at discharge: oriented Functional status at discharge: independent ambulation Exam Vital Signs (past 8 hours): - 12/08/19 05:00 12/08/19 05:07 12/08/19 08:30 Temperature 98.9 F Pulse Rate 68 Respiratory Rate 20 Blood Pressure 126/79 Pulse Oximetry 92 92 91 12/08/19 09:00 Temperature 97.5 F L Pulse Rate 74 Respiratory Rate 16 Blood Pressure 126/69 Pulse Oximetry 91 Oxygen Delivery Method Room Air Oxygen Flow Rate 0 Narrative Exam Narrative: General elderly woman alert oriented no acute distress Please abdomen appropriately tender to palpation incisions clean dry intact. Right upper quadrant drain serosanguineous output no bile Objective Labs Result Diagrams: 12/08/19 04:40 12/08/19 04:40 Labs: Laboratory Results - last 24 hr 12/08/19 12/08/19 04:40 04:40 WBC 7.9 RBC 4.45 Hgb 12.5 Hct 37.4 MCV 84.1 MCH 28.2 MCHC 33.5 RDW 14.9 H Plt Count 274 Neut % (Auto) 73.1 Lymph % (Auto) 15.[address] [place] % (Auto) 6.8 Eos % (Auto) 3.6 Baso % (Auto) 1.1 Neut # (Auto) 5800 Lymph # (Auto) 1200 [place] # (Auto) 500 Eos # (Auto) 300 Baso # (Auto) 100 Sodium 137 Potassium 4.3 Chloride 106 Carbon Dioxide 29 BUN 12 Creatinine 0.97 Estimated GFR 56.9 L BUN/Creatinine Ratio 12.4 Glucose 105 Calcium 8.1 L Total Bilirubin 0.9 AST 100 H ALT 93 H Alkaline Phosphatase 55 Total Protein 5.4 L Albumin 3.1 L Globulin 2.3 Albumin/Globulin Ratio 1.3 Discharge Plan Discharge Plan Patient Disposition: Home Discharge orders & Medications Prescriptions: New docusate sodium [Colace] 100 mg capsule 100 mg PO BID Qty: 30 RF: 0 oxycodone 5 mg tablet 5 mg PO Q6H PRN (Reason: pain) Qty: 30 RF: 0 Continued fenofibrate 54 mg tablet 54 mg PO DAILY RF: 0 Calcium 600 with Vitamin D3 600 mg(1,500mg) -400 unit tablet,chewable 1 tab PO DAILY RF: 0 omeprazole 20 mg capsule,delayed release(DR/EC) 20 mg PO DAILY Qty: 90 RF: 1 montelukast 10 mg tablet 10 mg PO DAILY PRN (Reason: allergies) RF: 0 oxybutynin chloride 5 mg tablet 10 mg PO DAILY RF: 0 Follow up/Referrals: Jean Carlos Rivero ARNP [Primary Care Provider] - Visit Report/Discharge Packet Visit Report Forms: Patient Portal/API, Stroke Signs & Symptoms Discharge Data Primary Care Provider: Jean Carlos Rivero Discharges patient from system. Discharge Date/Time: 12/08/19 11:24
--- NOTE | 2019-12-08 16:42 | CM.DPNOTE ---
DC Note Dr souza sending patient home today; states she might benefit from HH, F2F signed. Patient had left the building before this NETWORK SYSTEMS ENGINEER able to respond, but did place call to patient to discuss HH referral, HH RN to assist w/drain management? She felt she did not need HH but would plan to call Dr Souza's office w/any needs that arise. Placed call to Dr Souza's office and LM updating w/above JW
== END 2019-12-08 11:24 | disposition home or self-care (01) | DRG 419 ==
LOC: OR 13:49 → AC 12-07 13:00
PROVIDERS: Admitting Provider Surgery; PCP Registered Nurse Diabetes Educator; Referring Provider Registered Nurse Diabetes Educator; Visit Provider Surgery
PROC: 0FT44ZZ Resection of Gallbladder, Percutaneous Endoscopic Approach (ICD-10-PCS; CPT 47562; principal; 2019-12-06 15:45)
DX: K80.21 Calculus of gallbladder without cholecystitis with obstruction (principal); K21.9 Gastro-esophageal reflux disease without esophagitis; E78.5 Hyperlipidemia, unspecified
CPT/HCPCS: 36415; 47562; 80053; 85025; 87635; 94762; J0690; J1100; J1170; J1650; J1885; J2060; J2405; J2543; J2704; J3010

== ENCOUNTER 2019-12-10 08:27 | Observation (INO) | payer MEDICARE, OTHER, SELFPAY ==
[2019-12-06 22:00] VITALS: BMI 26.3
[2019-12-10] VITALS (10 sets, daily range): BP systolic 148–199; BP diastolic 74–113; PULSE 76–91; RESP 16–18; TEMP 36.6–37.3; O2SAT 88–97; BMI 25.6
[2019-12-10 08:53] LABS: Add Manual Diff / Slide Review NO; Basophils Absolute Auto 0 /uL (0-100); Basophils Percent Auto 0.4 % (0-2); Eosinophils Absolute Auto 300 /uL (0-450); Eosinophils Percent Auto 3.6 % (2-4); Hemoglobin 14.2 g/dL (12.0-16.0); Lymphocytes Absolute Auto 900 /uL (1100-4500); Lymphocytes Percent Auto 9.3 % (25-40); Mean Corpuscular Hemoglobin 27.6 PG (26-34); Mean Corpuscular Volume 83.7 fL (80-100); Monocytes Absolute Auto 600 /uL (0-900); Monocytes Percent Auto 6.1 % (3-14); Neutrophils Absolute Auto 7700 /uL (1500-7000); Neutrophils Percent Auto 80.6 % (50-75); Platelet Count 346 X10^3/uL (150-400); Red Blood Cell Count 5.13 X10^6/uL (4.0-5.2); Red Cell Distribution Width 14.6 % (11.6-14.8); White Blood Cell Count 9.6 X10^3/uL (4.5-11.0)
--- NOTE | 2019-12-10 08:55 | ED_ITS ---
HPI - Abdominal Pain General Chief Complaint: Abdominal Pain Stated Complaint: GB PARTIAL REMOVAL/ DRAIN UNNATACHED Time Seen by Provider: 12/10/19 08:39 Source: patient Mode of arrival: Wheelchair Limitations: no limitations History of Present Illness HPI narrative: This is a 69-year-old female who comes to the emergency department with complaint of abdominal pain and drainage from around her abdominal drain. Patient had a partial cholecystectomy on December 03/Thursday this was initially supposed to be a cholecystectomy for cholelithiasis but secondary to a shortened cystic duct had a partial cholecystectomy and stone removed for episodes of biliary colic and had an elective surgery. She states that she has not had any fevers, no chills, no chest pain or shortness of breath. She had some abdominal pain which was slowly improving but rapidly worsening today and over the right upper quadrant flank region. She has not been vomiting but has felt nauseated. Patient has not had a bowel movement since her discharge from the hospital but she has been passing gas since yesterday she states she has had normal urine output. Patient noted that she had drainage via the 2 from about 80 cc to 50 yesterday and 30 this morning tapering off but this morning she also had drainage of the same fluid from armin und the tube itself. She has not noticed any redness or skin changes. She is quite uncomfortable she has been taking oxycodone and ibuprofen for pain but states that it was controlled until today. Related Data Home Medications Medication Instructions Recorded Confirmed fenofibrate 54 mg tablet 54 mg PO DAILY 10/18/19 12/10/19 montelukast 10 mg PO DAILY PRN 12/06/19 12/10/19 oxybutynin chloride 10 mg PO DAILY 12/06/19 12/10/19 Previous Rx's Medication Instructions Recorded omeprazole 20 mg capsule,delayed 20 mg PO DAILY #90 cap 11/10/19 release docusate sodium [Colace] 100 mg PO BID #30 cap 12/08/19 oxycodone 5 mg PO Q6H PRN #30 tab 12/08/19 Allergies Allergy/AdvReac Type Severity Reaction Status Date / Time [id number]-[id number] Reductase AdvReac Mild forgetful, Verified 12/10/19 08:49 Inhibitor dingy Review of Systems Review of Systems ROS Unobtainable: All systems reviewed & are unremarkable except as noted in HPI and below Patient History Medical History Allergic rhinitis (Acute 11/24/13) Gallstone (Acute) GERD (gastroesophageal reflux disease) (Acute) Hyperlipidemia (Acute 11/24/13) Stress incontinence of urine (Acute 11/24/13) Urinary frequency (Acute) Surgical History History of bladder suspension procedure Status post appendectomy Status post tubal ligation Family History Father Hypertension Heart disease Mother Hypertension Stroke Sister Colon cancer Social History marital status: unknown household members: family Smoking Status: Never smoker alcohol intake: current Smoking Status: Never smoker alcohol intake frequency: a few times a week Substance Use Type: does not use Exam Narrative Exam Narrative: GENERAL: Alert and oriented x three, obese female in moderate distress HEENT: Head normocephalic, atraumatic, EOMI, pupils reactive, face symmetric, moist mucous membranes NECK: Supple, full range of motion CARDIOVASCULAR: Regular rate and rhythm without murmurs, rubs or gallops. RESPIRATORY: Breath sounds equal bilaterally, no wheezes rales or rhonchi. ABDOMEN: Soft, moderately tender in the left side, patient is quite tender in the right upper and flank region. A drain is present, there is a small amount of bloody serous fluid without any clot. Within the drain itself. Patient does not have any erythema or skin changes noted otherwise, no active drainage at this moment but bandage around the drain was wet from drainage. Normoactive bowel sounds all 4 quadrants. No guarding or rebound, rigidity, no mass : No CVA tenderness EXTREMITIES: Normal range of motion, no clubbing or edema. Neurovascularly intact NEUROLOGICAL: Cranial nerves II through XII grossly intact. Moving all extremities SKIN: Warm, dry, no petechiae, no rashes or lesions. Initial Vital Signs Initial Vital Signs: Vital Signs Temperature 97.8 F 12/10/19 08:47 Pulse Rate 89 12/10/19 08:47 Respiratory Rate 18 12/10/19 08:47 Blood Pressure 177/91 H 12/10/19 08:47 Pulse Oximetry 94 12/10/19 08:47 Course Course Course Narrative: Patient was seen by Dr. Grover in the department and decision was made to admit the patient for pain control. Labs do not show any major abnormalities, CT was reviewed with the surgeon myself and the surgeon saw the patient here in the department. Decision to Admit Date: 12/10/19 Orders Ordered: ED Orders 12/10/19 10:55 Blood Culture Stat Acetaminophen (Tylenol) 650 mg PO Q6HR [facility] Last Admin: 12/10/19 11:47 Dose: 650 mg Documented by: CMCFARL Bisacodyl (Dulcolax) 10 mg MT BID [facility] Last Admin: 12/10/19 11:32 Dose: 10 mg Documented by: CMCFARL Calcium Carbonate (Tums) 1,000 mg PO Q4HR PRN PRN Reason: Dyspepsia Docusate Sodium (Colace) 100 mg PO BID PRN PRN Reason: Constipation Last Admin: 12/10/19 11:31 Dose: 100 mg Documented by: CMCFARL Enoxaparin Sodium (Lovenox) 40 mg SUBCUT DAILY [facility] Fenofibrate (Fenofibrate) 48 mg PO DAILY [facility] Hydromorphone HCl (Dilaudid) 0.5 mg IV Q4HR PRN PRN Reason: Pain, Moderate (4-6) Lactated Ringer's (Lactated Ringers) 1,000 mls @ 100 mls/hr IV CONT [facility] Last Admin: 12/10/19 11:32 Dose: 100 mls/hr Documented by: CMCFARL Influenza Virus Vaccine (Flu Hd Vaccine) 0.7 ml IM .ONCE ONE Stop: 12/11/19 09:01 Ketorolac Tromethamine (Toradol) 15 mg IV Q6H FLY Stop: 12/15/19 10:36 Last Admin: 12/10/19 16:33 Dose: 15 mg Documented by: Admin: 12/10/19 11:31 Dose: 15 mg Documented by: CMCFARL Lidocaine (Lidoderm) 1 each TOP DAILY [facility] Last Admin: 12/10/19 11:34 Dose: 1 each Documented by: CMCFARL Lidocaine (Lidoderm (Remove Patch)) 1 each TOP BEDTIME FLY Montelukast Sodium (Singulair) 10 mg PO DAILY PRN PRN Reason: allergies Naloxone HCl (Narcan) 0.2 mg IV Q2MIN PRN PRN Reason: Opiate Reversal Oxybutynin (Ditropan) 10 mg PO DAILY [facility] Oxycodone HCl (Percolone) 5 mg PO Q4HR PRN PRN Reason: Pain, Moderate (4-6) Pantoprazole Sodium (Protonix) 40 mg IV DAILY [facility] Last Admin: 12/10/19 11:31 Dose: 40 mg Documented by: PRISCILA Polyethylene Glycol (Miralax) 17 gm PO TID [facility] Last Admin: 12/10/19 14:24 Dose: 17 gm Documented by: Admin: 12/10/19 11:31 Dose: 17 gm Documented by: PRISCILA Sennosides (Senna) 17.2 mg PO BEDTIME [facility] Discontinued Medications Hydromorphone HCl (Dilaudid) 0.5 mg IV NOW ONE Stop: 12/10/19 08:52 Last Admin: 12/10/19 08:58 Dose: 0.5 mg Documented by: KYREE Hydromorphone HCl (Dilaudid) 1 mg IV NOW ONE Stop: 12/10/19 10:17 Last Admin: 12/10/19 10:41 Dose: 1 mg Documented by: KYREE Sodium Chloride (Normal Saline 0.9%) 1,000 mls @ 150 mls/hr IV CONT [facility] Last Infusion: 12/10/19 10:45 Dose: 0 mls/hr Documented by: Admin: 12/10/19 08:57 Dose: 150 mls/hr Documented by: KYREE Ondansetron HCl (Zofran) 4 mg IV NOW ONE Stop: 12/10/19 08:52 Last Admin: 12/10/19 08:57 Dose: 4 mg Documented by: KYREE Reevaluation(s) Time: 10:19 Vital Signs Vital signs: Vital Signs - 8 hr 12/10/19 08:47 12/10/19 09:19 12/10/19 09:30 Temperature 97.8 F Pulse Rate 89 83 88 Respiratory Rate 18 Blood Pressure 177/91 H 180/84 H Pulse Oximetry 94 92 92 MDM - Abdominal Pain Lab Data Attestation: I reviewed the patient's lab results. Result diagrams: 12/10/19 08:40 12/10/19 08:40 Labs: Lab Results 10/12/10/19 12/10/19 Range/Units 08:40 08:40 08:40 WBC 9.6 (4.5-11.0) X10^3/uL RBC 5.13 (4.0-5.2) X10^6/uL Hgb 14.2 (12.0-16.0) g/dL Hct 43.0 (36-46) % MCV 83.7 (80-100) fL MCH 27.6 (26-34) PG MCHC 33.0 (30-36) % RDW 14.6 (11.6-14.8) % Plt Count 346 (150-400) X10^3/uL Neut % (Auto) 80.6 H (50-75) % Lymph % (Auto) 9.3 L (25-40) % [place] % (Auto) 6.1 (3-14) % Eos % (Auto) 3.6 (2-4) % Baso % (Auto) 0.4 (0-2) % Neut # (Auto) 7700 H (0937-9562) /uL Lymph # (Auto) 900 L (0806-3234) /uL [place] # (Auto) 600 (0-900) /uL Eos # (Auto) 300 (0-450) /uL Baso # (Auto) 0 (0-100) /uL PT 12.9 H (10.1-12.7) SECONDS INR 1.1 (0.9-1.3) APTT 35 (26.4-36.2) SECONDS Sodium (137-145) mmol/L Potassium (3.4-5.1) mmol/L Chloride (98-107) mmol/L Carbon Dioxide (22-32) mmol/L BUN (7-17) mg/dL Creatinine (0.52-1.04) mg/dL Estimated GFR (>60) mL/min BUN/Creatinine Ratio (6-22) Glucose (80-110) mg/dL Lactate (0.7-2.1) mmol/L Calcium (8.4-10.2) mg/dL Total Bilirubin (0.2-1.3) mg/dL AST (14-36) IU/L ALT (<35) IU/L Alkaline Phosphatase (38-126) U/L Total Protein (6.3-8.2) g/dL Albumin (3.5-5.0) g/dL Globulin (1.7-4.1) g/dL Albumin/Globulin Ratio (1.0-2.8) Lipase (23-300) U/L Procalcitonin < 0.05 (<0.5) ng/mL COVID-19 PCR (Negative) 12/10/19 12/10/19 12/10/19 Range/Units 08:40 08:40 09:00 WBC (4.5-11.0) X10^3/uL RBC (4.0-5.2) X10^6/uL Hgb (12.0-16.0) g/dL Hct (36-46) % MCV (80-100) fL MCH (26-34) PG MCHC (30-36) % RDW (11.6-14.8) % Plt Count (150-400) X10^3/uL Neut % (Auto) (50-75) % Lymph % (Auto) (25-40) % [place] % (Auto) (3-14) % Eos % (Auto) (2-4) % Baso % (Auto) (0-2) % Neut # (Auto) (8070-5608) /uL Lymph # (Auto) (3508-2821) /uL [place] # (Auto) (0-900) /uL Eos # (Auto) (0-450) /uL Baso # (Auto) (0-100) /uL PT (10.1-12.7) SECONDS INR (0.9-1.3) APTT (26.4-36.2) SECONDS Sodium 136 L (137-145) mmol/L Potassium 4.2 (3.4-5.1) mmol/L Chloride 103 (98-107) mmol/L Carbon Dioxide 26 (22-32) mmol/L BUN 10 (7-17) mg/dL Creatinine 0.74 (0.52-1.04) mg/dL Estimated GFR > 60.0 (>60) mL/min BUN/Creatinine Ratio 13.5 (6-22) Glucose 116 H (80-110) mg/dL Lactate 0.9 (0.7-2.1) mmol/L Calcium 8.7 (8.4-10.2) mg/dL Total Bilirubin 0.8 (0.2-1.3) mg/dL AST 55 H (14-36) IU/L ALT 71 H (<35) IU/L Alkaline Phosphatase 105 D (38-126) U/L Total Protein 6.5 (6.3-8.2) g/dL Albumin 3.9 (3.5-5.0) g/dL Globulin 2.6 (1.7-4.1) g/dL Albumin/Globulin Ratio 1.5 (1.0-2.8) Lipase 55 (23-300) U/L Procalcitonin (<0.5) ng/mL COVID-19 PCR Negative (Negative) Imaging Data CT scan - abdomen/pelvis: Radiologist's Impression: Thelma Garcia 69 F 1950 [place] [address] CT Scan Report Signed Patient: Thelma Garcia LMR#: [id number] : [id number]:[id number] Age/Sex: 69 / FDate of Service: 12/10/19 Loc: ED Accession Number: [id number] Procedure: CT abdomen pelvis w con Ordering Provider: Eva Govea D.O. PROCEDURE: CT ABDOMEN PELVIS W CON INDICATIONS: s/p partial cholecystectomy, abd pain, drainage around drain TECHNIQUE: After the administration of intravenous contrast, 5 mm thick sections acquired from the diaphragm to the symphysis. 5 mm coronal and sagittal reformats were acquired. For radiation dose reduction, the following was used: automated exposure control, adjustment of mA and/or kV according to patient size. COMPARISON: None. FINDINGS: Image quality: Excellent. ABDOMEN: Lung bases: Mild bibasilar atelectasis. No significant effusion. Heart size is normal. Small hiatal hernia. Solid organs: Liver is normal in size. Subtle hypodensity in the inferior right lobe of the liver, (04/21). Recent gallbladder resection. The small enhancing area adjacent to the cystic duct stump, (06/05). Mild amount of fluid in the gallbladder fossa. Mild adjacent stranding. Small foci of gas adjacent to the gallbladder fossa and inferior margin of the liver. CBD measures 5 mm. No intrahepatic biliary ductal dilatation. Right flank surgical drain with the catheter transversing in the anterior abdomen with tip in the lower abdomen. There is trace gas adjacent to the catheter as it enters the abdominal cavity. Pancreas enhances normally. Spleen is within normal limits. No adrenal nodules. Kidneys demonstrate normal size and enhancement, without hydronephrosis. Peritoneum and bowel: Bowel loops demonstrate normal wall thickness and caliber. Diverticulosis. Mild stranding in the right pericolic gutter. No significant pneumoperitoneum. Prominent stool in the right colon. Nodes and vessels: No retroperitoneal or mesenteric adenopathy by size criteria. Aorta and inferior vena cava are normal in size. Mild calcified atherosclerotic plaque. Duplicated right renal artery. Patent and conventional hepatic arterial anatomy. Portal vein and SMV are patent. Miscellaneous: No ventral hernias. Mild periumbilical stranding. PELVIS: Genitourinary: Bladder is unremarkable. Uterus is absent. Miscellaneous: No inguinal hernias or adenopathy. Bones: No suspicious bony lesions. Levoscoliosis. No vertebral body compression fractures. IMPRESSION: 1. Post recent cholecystectomy. Mild amount of free fluid and stranding in the gallbladder fossa. Findings could be within normal postsurgical limits. 2. Mild enhancement at the cystic duct remnant. The punctate foci of free air are postsurgical. Trace free fluid in the right pericolic gutter. 3. No significant biliary ductal dilatation. 4. Trace gas adjacent to the entry site of the right flank surgical drain. Catheter tip in the lower abdomen. 5. Hypodensity in the inferior right lobe of the liver likely due to intraoperative liver retraction. 6. Prominent stool in the right colon. Dictated by: James Sr M.D. on 12/10/2019 at 9:52 Approved by: James Sr M.D. on 12/10/2019 at 10:04 [facility] Narrative Medical decision making narrative: Dr. Grover saw the patient in the department and accepts for admission. Patient has a bile leak but would like to watch her for pain control. Patient is agreeable her pain is somewhat improved but still uncomfortable after Dilaudid. Patient does not have any clear infectious changes on lab work or clinically on exam although she is quite uncomfortable. At this time antibiotics are deferred. Discharge Plan Departure Patient Disposition: Admitted as Observation Clinical Impression: Intractable abdominal pain Discharge Date/Time: 12/10/19 11:00 Referrals: Jean Carlos Rivero ARNP [Primary Care Provider] - Admit Date/Time: 12/10/19 10:19 Admit Provider: Di Grover
[2019-12-10] MEDS: SODIUM CHLORIDE 0.9% 1,000 ML 150 ML IV (08:57)
[2019-12-10] MEDS: ONDANSETRON 4 MG/2 ML INJ IV (08:57)
[2019-12-10] MEDS: HYDROMORPHONE 0.5 MG INJ IV (08:58)
[2019-12-10 09:00] LABS: INR 1.1 (0.9-1.3); Prothrombin Time 12.9 SECONDS (10.1-12.7)
[2019-12-10 09:02] LABS: PTT Partial Thromboplastin Tim 35 SECONDS (26.4-36.2)
[2019-12-10 09:06] LABS: Alanine Aminotransferase 71 IU/L (<35); Albumin 3.9 g/dL (3.5-5.0); Albumin Globulin Ratio 1.5 (1.0-2.8); Alkaline Phosphatase 105 U/L (38-126); Aspartate Aminotransferase 55 IU/L (14-36); BUN Creatinine Ratio 13.5 (6-22); Bilirubin Total 0.8 mg/dL (0.2-1.3); Blood Urea Nitrogen 10 mg/dL (7-17); Calcium 8.7 mg/dL (8.4-10.2); Carbon Dioxide 26 mmol/L (22-32); Chloride 103 mmol/L (98-107); Estimated Glomerular Filt Rate > 60.0 mL/min (>60); Globulin 2.6 g/dL (1.7-4.1); Glucose 116 mg/dL (80-110); HEMOLYSIS < 15 (0-50); Lactate (Lactic Acid) 0.9 mmol/L (0.7-2.1); Lipase 55 U/L (23-300); Potassium 4.2 mmol/L (3.4-5.1); Sodium 136 mmol/L (137-145); Total Protein 6.5 g/dL (6.3-8.2)
[2019-12-10 09:20] LABS: Procalcitonin < 0.05 ng/mL (<0.5)
[2019-12-10 09:32] LABS: COVID19 -Nasal RAPID Negative (Negative)
[2019-12-10] MEDS: HYDROMORPHONE 0.5 MG INJ (09:45)
--- NOTE | 2019-12-10 10:16 | P.HP_ITS ---
History of Present Illness History of Present Illness Date Patient Seen: 12/10/19 Time Patient Seen: 10:16 Chief complaint: GB PARTIAL REMOVAL/ DRAIN UNNATACHED Narrative: This is a 69-year-old woman who is postop day 4 from a subtotal cholecystectomy for extensive chronic cholecystitis with a very large gallbladder stone, and very short cystic duct. She comes into the ER today because she has been struggling at home with constipation and abdominal pain. Her left-sided abdominal pain has improved as she has began passing gas yesterday. However, she is having right-sided abdominal pain which has not been manageable at home with oral pain medication. She denies any fevers, jaundice, vomiting. In the ER she has had labs and a CT scan, which I have reviewed, and all of which are indicative of expected postoperative changes. No indication of a bile leak, or other surgical complication is seen. However, the patient is not managing well enough at home to be able to send her home. We will admit her for pain control and bowel regimen. Once she is able to manage her own pain control at home we will let her go home. ROS: The patient reports difficulty taking a deep breath due to right upper quadrant pain, and right flank pain. She reports nausea but no vomiting. She reports flatus but no bowel movement. She denies dysuria, chest pain. Thirteen system review is otherwise negative other than as mentioned below and in HPI. PE: GENERAL: Alert, moderate distress due to pain. Appears stated age. Answers questions promptly and appropriately. Vital signs noted. HENT: Normocephalic, atraumatic. Hearing intact. EYES: Conjunctiva pink, sclera white, no periorbital swelling. CARDIOVASCULAR: Regular rate. No pedal edema. RESPIRATORY: Non-tachypneic, no accessory muscle use, some splinting due to right upper quadrant pain with taking a deep breath. GASTROINTESTINAL: Abdomen soft and non-distended. Dressings are clean dry and intact, AMANDA drain is in place with thin, clear serosanguineous drainage in the tubing in the drain bulb; yellowish drainage staining on the patient's clothing, significant tenderness to palpation around the drain site in the entire right upper quadrant right flank GENITALURINARY: No left flank tenderness. MUSCULOSKELETAL: Equal tone and mass bilaterally. SKIN: Warm, dry, soft, appropriate color for ethnicity. No other lesions, rashes, or wounds. NEURO: Alert and Oriented X 3. No gross sensory deficits, or cognitive issues. PSYCH: Appropriate affect and mood. Patient History Medical History Allergic rhinitis (Acute 11/24/13) Gallstone (Acute) GERD (gastroesophageal reflux disease) (Acute) Hyperlipidemia (Acute 11/24/13) Stress incontinence of urine (Acute 11/24/13) Urinary frequency (Acute) Surgical History History of bladder suspension procedure Status post appendectomy Status post tubal ligation Family & Social History Family History Father Hypertension Heart disease Mother Hypertension Stroke Sister Colon cancer Social History: household members Safety & Behavioral: Feels Safe in Current Yes Environment Been Physically Hurt or No Threatened By a Person Tobacco & Substance use: Smoking Status Never smoker alcohol intake frequency a few times a week Substance Use Type does not use Meds Home Medications and Allergies Home Medications Medication Instructions Recorded Confirmed Type calcium carbonate-vitamin D3 600 1 tab PO DAILY 10/18/19 12/06/19 History mg(1,500 mg)-400 unit chewable tablet fenofibrate 54 mg tablet 54 mg PO DAILY 10/18/19 12/06/19 History omeprazole 20 mg capsule,delayed 20 mg PO DAILY #90 cap 11/10/19 12/06/19 Rx release montelukast 10 mg PO DAILY PRN 12/06/19 12/06/19 History oxybutynin chloride 10 mg PO DAILY 12/06/19 12/06/19 History docusate sodium [Colace] 100 mg PO BID #30 cap 12/08/19 Rx oxycodone 5 mg PO Q6H PRN #30 tab 12/08/19 12/10/19 Rx Allergies Allergy/AdvReac Type Severity Reaction Status Date / Time Hovrpws-Ztr-Vko Reductase AdvReac Mild forgetful, Verified 12/10/19 08:49 Inhibitor dingy Exam Vital Signs (past 8 hours): - 12/10/19 08:47 12/10/19 09:19 12/10/19 09:30 Temperature 97.8 F Pulse Rate 89 83 88 Respiratory Rate 18 Blood Pressure 177/91 H 180/84 H Pulse Oximetry 94 92 92 Oxygen Delivery Method Room Air Objective Imaging CT scan - abdomen: My impression: Looks like constipation and otherwise expected post op changes. Radiologist's impression: [address] [address] [address] Scan Report Signed Patient: Thelma Garcia LMR#: [id number] : 1Acct:[id number] Age/Sex: 69 / FDate of Service: 12/10/19 Loc: ED Accession Number: [id number] Procedure: CT abdomen pelvis w con Ordering Provider: Eva Govea D.O. PROCEDURE: CT ABDOMEN PELVIS W CON INDICATIONS: s/p partial cholecystectomy, abd pain, drainage around drain TECHNIQUE: After the administration of intravenous contrast, 5 mm thick sections acquired from the diaphragm to the symphysis. 5 mm coronal and sagittal reformats were acquired. For radiation dose reduction, the following was used: automated exposure control, adjustment of mA and/or kV according to patient size. COMPARISON: None. FINDINGS: Image quality: Excellent. ABDOMEN: Lung bases: Mild bibasilar atelectasis. No significant effusion. Heart size is normal. Small hiatal hernia. Solid organs: Liver is normal in size. Subtle hypodensity in the inferior right lobe of the liver, (2/27). Recent gallbladder resection. The small enhancing area adjacent to the cystic duct stump, (4/13). Mild amount of fluid in the gallbladder fossa. Mild adjacent stranding. Small foci of gas adjacent to the gallbladder fossa and inferior margin of the liver. CBD measures 5 mm. No intrahepatic biliary ductal dilatation. Right flank surgical drain with the catheter transversing in the anterior abdomen with tip in the lower abdomen. There is trace gas adjacent to the catheter as it enters the abdominal cavity. Pancreas enhances normally. Spleen is within normal limits. No adrenal nodules. Kidneys demonstrate normal size and enhancement, without hydronephrosis. Peritoneum and bowel: Bowel loops demonstrate normal wall thickness and caliber. Diverticulosis. Mild stranding in the right pericolic gutter. No significant pneumoperitoneum. Prominent stool in the right colon. Nodes and vessels: No retroperitoneal or mesenteric adenopathy by size criter ia. Aorta and inferior vena cava are normal in size. Mild calcified atherosclerotic plaque. Duplicated right renal artery. Patent and conventional hepatic arterial anatomy. Portal vein and SMV are patent. Miscellaneous: No ventral hernias. Mild periumbilical stranding. PELVIS: Genitourinary: Bladder is unremarkable. Uterus is absent. Miscellaneous: No inguinal hernias or adenopathy. Bones: No suspicious bony lesions. Levoscoliosis. No vertebral body compression fractures. IMPRESSION: 1. Post recent cholecystectomy. Mild amount of free fluid and stranding in the gallbladder fossa. Findings could be within normal postsurgical limits. 2. Mild enhancement at the cystic duct remnant. The punctate foci of free air are postsurgical. Trace free fluid in the right pericolic gutter. 3. No significant biliary ductal dilatation. 4. Trace gas adjacent to the entry site of the right flank surgical drain. Catheter tip in the lower abdomen. 5. Hypodensity in the inferior right lobe of the liver likely due to intraoperative liver retraction. 6. Prominent stool in the right colon. Dictated by: James Sr M.D. on 12/10/2019 at 9:52 Approved by: James Sr M.D. on 12/10/2019 at 10:04 Labs Result Diagrams: 12/10/19 08:40 12/10/19 08:40 Labs: Laboratory Results - last 24 hr 12/10/19 12/10/19 12/10/19 08:40 08:40 08:40 WBC 9.6 RBC 5.13 Hgb 14.2 Hct 43.0 MCV 83.7 MCH 27.6 MCHC 33.0 RDW 14.6 Plt Count 346 Neut % (Auto) 80.6 H Lymph % (Auto) 9.3 L [place] % (Auto) 6.1 Eos % (Auto) 3.6 Baso % (Auto) 0.4 Neut # (Auto) 7700 H Lymph # (Auto) 900 L [place] # (Auto) 600 Eos # (Auto) 300 Baso # (Auto) 0 PT 12.9 H INR 1.1 APTT 35 Sodium Potassium Chloride Carbon Dioxide BUN Creatinine Estimated GFR BUN/Creatinine Ratio Glucose Lactate Calcium Total Bilirubin AST ALT Alkaline Phosphatase Total Protein Albumin Globulin Albumin/Globulin Ratio Lipase Procalcitonin < 0.05 COVID-19 PCR 12/10/19 12/10/19 12/10/19 08:40 08:40 09:00 WBC RBC Hgb Hct MCV MCH MCHC RDW Plt Count Neut % (Auto) Lymph % (Auto) [place] % (Auto) Eos % (Auto) Baso % (Auto) Neut # (Auto) Lymph # (Auto) [place] # (Auto) Eos # (Auto) Baso # (Auto) PT INR APTT Sodium 136 L Potassium 4.2 Chloride 103 Carbon Dioxide 26 BUN 10 Creatinine 0.74 Estimated GFR > 60.0 BUN/Creatinine Ratio 13.5 Glucose 116 H Lactate 0.9 Calcium 8.7 Total Bilirubin 0.8 AST 55 H ALT 71 H Alkaline Phosphatase 105 D Total Protein 6.5 Albumin 3.9 Globulin 2.6 Albumin/Globulin Ratio 1.5 Lipase 55 Procalcitonin COVID-19 PCR Negative Assessment & Plan Assessment and plan (1) S/P laparoscopic cholecystectomy: Status: Acute (2) Intractable abdominal pain: Status: Acute (3) GERD (gastroesophageal reflux disease): Status: Acute (4) Constipation: Status: Acute (5) Stress incontinence of urine: Status: Acute (6) Nausea: Status: Acute Assessment & Plan narrative: This is a 69-year-old woman who is being admitted for intractable pain and severe constipation 4 days after a very difficult subtotal cholecystectomy. I do not see any indications of a complication of the bile ducts or the surgery itself, however the patient is not able to manage her own pain at home with oral pain medication, and she is in significant distress due to her constipation. [place], and has been living with other people ?like a gypsy. This is likely making pain management and bowel management after surgery more difficult. Either way, she is not well enough to go home and try to continue managing this on her own. So we will admit her for observation, pain control, bowel regimen, and plan to discharge her when these things can be managed as an outpatient. Plan: Admit to Surgical service P.o. and IV pain med Minimize narcotic DVT prophylaxis Bowel regimen Ambulate as tolerated Oral intake as tolerated Correct electrolytes Follow drain output Discharge when pain and bowel care can be managed at home COVID-19 COVID-19 status: Negative Result date/Date tested (Pos, Neg/Pending): 12/10/19 Time Spent With Patient Time with patient: 25 - 35 minutes Quality VTE Deep Vein Thrombosis/Pulmonary Embolism Present on Admission: No
[2019-12-10] MEDS: HYDROMORPHONE 1 MG INJ IV (10:41)
[2019-12-10] MEDS: PANTOPRAZOLE 40 MG VIAL IV (11:31)
[2019-12-10] MEDS: DOCUSATE 100 MG CAPSULE PO ×2 (11:31→19:57)
[2019-12-10] MEDS: KETOROLAC 30 MG/ML VIAL 15 MG IV ×3 (11:31→23:18)
[2019-12-10] MEDS: polyethylene glycoL 3350 17 GM POWD.PACK PO ×3 (11:31→19:57)
[2019-12-10] MEDS: LACTATED RINGERS 1,000 ML 100 ML IV ×2 (11:32→21:33)
[2019-12-10] MEDS: BISACODYL 10 MG SUPP PR ×2 (11:32→19:58)
[2019-12-10] MEDS: LIDOCAINE PATCH 1 EACH ADH..PATCH TOP (11:34)
[2019-12-10] MEDS: ACETAMINOPHEN 325 MG TABLET 650 MG PO ×2 (11:47→18:12)
--- NOTE | 2019-12-10 11:54 | PC.NURSE ---
Pt to room 225 via stretcher from ER and able to transfer to bed by herself. Pt oriented to room, call light, bed controls, and tv controls. SCD's on and running. IVF infusing as ordered. Suppository given, lidocaine patch placed, [id number], and tylenol given. Pt agrees to call for assistance as needed and to not get up without assistance.
--- NOTE | 2019-12-10 13:56 | CM.MNRNOTE ---
SBA up to BR with fww and steady gait to urinate. Pt is AO x3. Expresses concern r/t abd drain leaking around insertion site. Noted moderate amount of yellow drainage to towel under drain site. Cleansed skin eyad drain site. Applied gauze dsg and secured with paper tape. Emptied 15 ML of serosang drainage from bulb. 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 No results from bowel meds yet. SPO2 noted to be 94% on 1L NC. Removed O2 and rechecked SPO2 after 10 minutes showing 95%. Bed alarm on. Call light in reach. SCDs on.
[2019-12-10] MEDS: OXYCODONE IR 5 MG TABLET PO (19:57)
[2019-12-10] MEDS: SENNOSIDES 8.6 MG TABLET 17.2 MG PO (19:58)
[2019-12-11] MEDS: ACETAMINOPHEN 325 MG TABLET 650 MG PO ×3 (00:39→11:24)
[2019-12-11] MEDS: OXYCODONE IR 5 MG TABLET PO ×3 (04:08→20:10)
[2019-12-11 04:11] VITALS: BP 145/80; PULSE 75; RESP 16; TEMP 37.1; O2SAT 92
[2019-12-11 05:13] LABS: Alanine Aminotransferase 89 IU/L (<35); Albumin Globulin Ratio 1.3 (1.0-2.8); Alkaline Phosphatase 107 U/L (38-126); Aspartate Aminotransferase 84 IU/L (14-36); BUN Creatinine Ratio 11.7 (6-22); Bilirubin Total 0.9 mg/dL (0.2-1.3); Blood Urea Nitrogen 9 mg/dL (7-17); Calcium 8.3 mg/dL (8.4-10.2); Carbon Dioxide 30 mmol/L (22-32); Chloride 104 mmol/L (98-107); Estimated Glomerular Filt Rate > 60.0 mL/min (>60); Globulin 2.3 g/dL (1.7-4.1); Glucose 123 mg/dL (80-110); HEMOLYSIS < 15 (0-50); Phosphorous 3.7 mg/dL (2.8-4.1); Potassium 4.6 mmol/L (3.4-5.1); Sodium 135 mmol/L (137-145); Total Protein 5.3 g/dL (6.3-8.2)
[2019-12-11 05:19] LABS: Add Manual Diff / Slide Review NO; Basophils Absolute Auto 100 /uL (0-100); Basophils Percent Auto 0.6 % (0-2); Eosinophils Absolute Auto 400 /uL (0-450); Eosinophils Percent Auto 4.6 % (2-4); Hematocrit 36.4 % (36-46); Hemoglobin 12.3 g/dL (12.0-16.0); Lymphocytes Absolute Auto 1100 /uL (1100-4500); Lymphocytes Percent Auto 12.6 % (25-40); Mean Corpuscular HGB Conc 33.7 % (30-36); Mean Corpuscular Hemoglobin 28.1 PG (26-34); Mean Corpuscular Volume 83.3 fL (80-100); Monocytes Absolute Auto 800 /uL (0-900); Monocytes Percent Auto 8.5 % (3-14); Neutrophils Absolute Auto 6700 /uL (1500-7000); Neutrophils Percent Auto 73.7 % (50-75); Platelet Count 285 X10^3/uL (150-400); Red Blood Cell Count 4.37 X10^6/uL (4.0-5.2); Red Cell Distribution Width 14.5 % (11.6-14.8); White Blood Cell Count 9.1 X10^3/uL (4.5-11.0)
[2019-12-11] MEDS: KETOROLAC 30 MG/ML VIAL 15 MG IV ×3 (05:19→16:55)
[2019-12-11 07:13] VITALS: BP 142/82; PULSE 76; RESP 16; TEMP 36.4; O2SAT 93
[2019-12-11] MEDS: LACTATED RINGERS 1,000 ML 100 ML IV (08:11)
[2019-12-11] MEDS: polyethylene glycoL 3350 17 GM POWD.PACK PO ×2 (08:14→14:10)
[2019-12-11] MEDS: BISACODYL 10 MG SUPP PR (08:14)
[2019-12-11] MEDS: ENOXAPARIN 40 MG/0.4 ML SYRINGE SUBCUT (08:14)
[2019-12-11] MEDS: FENOFIBRATE 48 MG TABLET PO (08:16)
[2019-12-11] MEDS: OXYBUTYNIN 5 MG TABLET 10 MG PO (08:17)
[2019-12-11] MEDS: LIDOCAINE PATCH 1 EACH ADH..PATCH TOP (08:17)
[2019-12-11] MEDS: PANTOPRAZOLE 40 MG VIAL IV (08:17)
[2019-12-11 11:21] VITALS: BP 144/85; PULSE 74; RESP 16; TEMP 36.7; O2SAT 94
--- NOTE | 2019-12-11 13:46 | PM.PNPO.1 ---
Subjective Subjective Date Patient Seen: 12/11/19 Time Patient Seen: 13:46 Interval history: The patient is postop from removal of a very difficult gallbladder. A very small portion of the gallbladder was left in. This is because the jen could not be safely dissected. She had over-sewing of the open into the gallbladder. She has been having a lot of pain. Still complains of pain. There was drainage around the tube but that has ceased. Appetite is not been very good. She has been experiencing a lot of discomfort. Has not had a good bowel movement. Exam Vital Signs (past 8 hours): - 12/11/19 07:13 12/11/19 11:21 Temperature 97.6 F 98.1 F Pulse Rate 76 74 Respiratory Rate 16 16 Blood Pressure 142/82 H 144/85 H Pulse Oximetry 93 94 Oxygen Delivery Method Room Air Oxygen Flow Rate 0 Narrative Exam Narrative: Cooperative no apparent distress. Her lungs are clear to auscultation. Good air movement. Heart regular rate and rhythm without murmur gallop. Abdomen is soft. Diffuse mild tenderness. No cellulitis. Drainage is non bilious serosanguineous. Objective Labs Result Diagrams: 12/11/19 04:47 12/11/19 04:47 Labs: Laboratory Results - last 24 hr 12/11/19 12/11/19 12/11/19 04:47 04:47 04:47 WBC 9.1 RBC 4.37 Hgb 12.3 Hct 36.4 MCV 83.3 MCH 28.1 MCHC 33.7 RDW 14.5 Plt Count 285 Neut % (Auto) 73.7 Lymph % (Auto) 12.6 L [place] % (Auto) 8.5 Eos % (Auto) 4.6 H Baso % (Auto) 0.6 Neut # (Auto) 6700 Lymph # (Auto) 1100 [place] # (Auto) 800 Eos # (Auto) 400 Baso # (Auto) 100 Sodium 135 L Potassium 4.6 Chloride 104 Carbon Dioxide 30 BUN 9 Creatinine 0.77 Estimated GFR > 60.0 BUN/Creatinine Ratio 11.7 Glucose 123 H Calcium 8.3 L Phosphorus 3.7 Magnesium 2.0 Total Bilirubin 0.9 AST 84 H ALT 89 H Alkaline Phosphatase 107 Total Protein 5.3 L Albumin 3.0 L Globulin 2.3 Albumin/Globulin Ratio 1.3 Assessment & Plan Post-op Postoperative Postoperative status narrative: Doing okay. Give her some milk of magnesia to help with her constipation. Postoperative plan narrative: Reviewed her CT scan. Not sure that the drain is in the fossa any longer. Drainage is non bilious. CBC is okay. LFTs are unchanged. Bilirubin is normal. Check labs in the a.m.. Milk of magnesia. Quality VTE Deep Vein Thrombosis/Pulmonary Embolism Present on Admission: No
[2019-12-11] MEDS: DEXTROSE 5%-0.45% NS 1,000 ML 84 ML IV (14:04)
[2019-12-11] MEDS: MAGNESIUM HYDROXIDE 30 ML UDC PO (14:04)
[2019-12-11] MEDS: PANTOPRAZOLE 20 MG TABLET PO (14:10)
--- NOTE | 2019-12-11 14:23 | PC.NURSE ---
Day shift note: Patient up OOB to BR, small loose light brown/yellow BM this late shift. C/O of sharp pain to left abdomen, and dull ache to right lower abdomen, generalized tenderness. 40 ml serousanguinous drainage. Medicated with Oxycodone PO, with adequate pain relief. IVF infusing. Calls appropriately for staff assist. Poor PO intake and appetite. No nausea or vomiting. + flatus.
--- NOTE | 2019-12-11 14:39 | CM.DANOTE ---
DCP/Assessment: Reviewed chart. Patient is a 69yr old female admitted to [facility] for drain issues. Patient recently hospitalized to have drain placed. PCP is Jena Carlos Rivero. Primary payor is 1)Medicare 2)[employer]. Met with patient explained CM/SW role. Patient ambulated in room with IV pole. Patient reports that she got scared with her drain and felt like it was not working appropriately. Therefore, surgery admitted to review and complete w/u. Patient reports that she was staying with family at time of last d/c. Patient unsure if she wants to do that again. Patient prefers going back to her camper. Encouraged patient to come up with safe plan that will include people checking in on her. Patient has no interest in HH due to space. Notified that CM team with continue to follow if needs arise. P: Anticipate home when medically stable. LORRAINE Wahl Discharge Planning/Care Management CM Discharge Assessment Start: 12/11/19 14:36 Freq: Status: Active Protocol: Document 12/11/19 14:36 KJS (Rec: 12/11/19 14:39 KJS [id number]) Discharge Planning Assessment Assigned Vehicle Window Tinter LORRAINE Wahl Contact Information Artur Garcia (son) Advance Directives? No History Provided By Patient,Medical Record Household Members none Type of transporation used prior to Relies on Others admit Comment Currently relying on other's at baseline drives. Willing to Return to Facility? No Independent with ADL's Yes Is patient alert and oriented? Yes Caregiver for Another No DME Already Rented / Owned FWW / Walker Comment Has FWW at home but does not use. Barriers to Discharge No Comment Needs pending Discharge Plan Home Transportation Arrangement Family to provide transport when paient medically stable. Whiteboard Updated in Patient Room with Yes name and ext. # of Vehicle Window Tinter Review Status In Process Next Review Type Continued Stay Review
[2019-12-11 15:23] VITALS: BP 142/79; PULSE 71; RESP 18; TEMP 36.6; O2SAT 96
--- NOTE | 2019-12-11 16:44 | PC.NURSE ---
Addendum entered by Sol Lara R.N. 12/11/19 21:00: Pt resting at this time. IVF continue as per orders. Med @ 2020 for discomfort w/good relief. Call light w/in reach, pt calls appropriately for needs. Continue w/plan of care. Original Note: Pt resting at intervals. Denies discomfort at this time. Lungs clear, SpO2 97% RA Dsg to the RLQ CDI, carrol drain patent serous drainage. Abdomen tender, soft, pt states had BM today. IVF of D5 1/2 NS @ 84ccc/hr infusing into the LFA via pump w/o incidence. Call light w/in reach, pt calls appropriately for needs.
[2019-12-11 19:18] VITALS: BP 155/85; PULSE 79; RESP 20; TEMP 36.4
[2019-12-12] VITALS: BP 136/76; PULSE 79; RESP 16; TEMP 36.6; O2SAT 95
[2019-12-12] MEDS: ACETAMINOPHEN 325 MG TABLET 650 MG PO ×3 (00:11→10:52)
[2019-12-12] MEDS: KETOROLAC 30 MG/ML VIAL 15 MG IV ×2 (00:12→04:53)
[2019-12-12] MEDS: OXYCODONE IR 5 MG TABLET PO ×2 (00:20→08:23)
[2019-12-12] MEDS: DEXTROSE 5%-0.45% NS 1,000 ML 84 ML IV (02:24)
[2019-12-12 05:17] LABS: Add Manual Diff / Slide Review NO; Basophils Absolute Auto 0 /uL (0-100); Basophils Percent Auto 0.6 % (0-2); Eosinophils Absolute Auto 500 /uL (0-450); Eosinophils Percent Auto 7.1 % (2-4); Hematocrit 34.5 % (36-46); Hemoglobin 11.6 g/dL (12.0-16.0); Lymphocytes Absolute Auto 1200 /uL (1100-4500); Mean Corpuscular HGB Conc 33.6 % (30-36); Mean Corpuscular Hemoglobin 28.2 PG (26-34); Mean Corpuscular Volume 83.9 fL (80-100); Monocytes Absolute Auto 500 /uL (0-900); Monocytes Percent Auto 7.6 % (3-14); Neutrophils Absolute Auto 4600 /uL (1500-7000); Neutrophils Percent Auto 66.7 % (50-75); Platelet Count 312 X10^3/uL (150-400); Red Blood Cell Count 4.11 X10^6/uL (4.0-5.2); Red Cell Distribution Width 14.5 % (11.6-14.8); White Blood Cell Count 6.9 X10^3/uL (4.5-11.0)
[2019-12-12 05:18] LABS: Magnesium 2.1 mg/dL (1.6-2.3); Phosphorous 3.5 mg/dL (2.8-4.1)
[2019-12-12 05:19] LABS: Alanine Aminotransferase 68 IU/L (<35); Albumin 2.8 g/dL (3.5-5.0); Albumin Globulin Ratio 1.3 (1.0-2.8); Alkaline Phosphatase 100 U/L (38-126); Aspartate Aminotransferase 46 IU/L (14-36); BUN Creatinine Ratio 10.8 (6-22); Bilirubin Total 0.7 mg/dL (0.2-1.3); Blood Urea Nitrogen 8 mg/dL (7-17); Carbon Dioxide 29 mmol/L (22-32); Chloride 105 mmol/L (98-107); Estimated Glomerular Filt Rate > 60.0 mL/min (>60); Globulin 2.2 g/dL (1.7-4.1); Glucose 112 mg/dL (80-110); HEMOLYSIS < 15 (0-50); Potassium 4.4 mmol/L (3.4-5.1); Sodium 136 mmol/L (137-145)
[2019-12-12 05:34] VITALS: BP 146/79; PULSE 68; RESP 16; TEMP 36.4; O2SAT 95
[2019-12-12] MEDS: PANTOPRAZOLE 40 MG TABLET PO (05:57)
[2019-12-12] MEDS: LIDOCAINE PATCH 1 EACH ADH..PATCH TOP (08:12)
[2019-12-12] MEDS: polyethylene glycoL 3350 17 GM POWD.PACK PO (08:12)
[2019-12-12] MEDS: DOCUSATE 100 MG CAPSULE PO (08:12)
[2019-12-12] MEDS: ENOXAPARIN 40 MG/0.4 ML SYRINGE SUBCUT (08:12)
[2019-12-12 08:13] VITALS: BP 148/84; PULSE 72; RESP 20; TEMP 36.4; O2SAT 98
[2019-12-12] MEDS: INFLUENZA HD VACCINE 0.7 ML SYRINGE IM (08:23)
--- NOTE | 2019-12-12 09:39 | PC.NURSE ---
Addendum entered by Melissa Galdamez R.N. 12/12/19 11:37: Went over dc meds and instructions with patient, discussed wound care and AMANDA instructions. Patient taken via wc to vehicle driven by spouse, patient had all belongings. Addendum entered by Melissa Galdamez R.N. 12/12/19 10:53: Replaced patients AMANDA drain dressing after patient showered. Placed one t-drain guaze and one 4x4 secured with paper tape. Original Note: Patient, rates lower abdominal pain 5/10 and reports it is shooting pain and is intermittent. Denies nausea. Tolerated general diet.
--- NOTE | 2019-12-12 14:31 | P.DS_ITS ---
History of Present Illness History of Present Illness Date Patient Seen: 12/12/19 Time Patient Seen: 14:31 Chief complaint: GB PARTIAL REMOVAL/ DRAIN UNNATACHED Narrative: This is a 69-year-old woman who underwent a laparoscopic subtotal cholecystectomy 12/05. The operation was significantly challenging given the extremely foreshortened cystic duct. Unable to safely expose the cystic duct, the entirety of the gallbladder could not be removed. A subtotal cholec ystectomy was performed the 3.5 cm stone was removed and the remnant of the gallbladder was then closed with suture an intra-abdominal drain was left in the gallbladder fossa. She remained in the hospital for 2 days postop for pain control and drain teaching. She went home and returned to the emergency room 2 days later with abdominal pain uncontrolled with oral pain medication. In addition she was having some drainage around the drain tube site. At readmission she underwent a CT A/P which was unremarkable laboratory studies were normal including LFTs. She was admitted for pain control. Discharge Providers Provider Date of admission: 12/10/19 10: Discharge Date: 12/12/19 Primary care physician: SUZAN Weiss Discharge provider: Dieter Souza MD Summary Hospital Course Discharge Diagnosis: abdominal pain constipation Hospital Course: Patient was admitted for abdominal pain which was successfully treated. In addition she had some constipation that was contributing to the abdominal pain which was treated. On the date of discharge 12/11 she is feeling well. Her vital signs within normal limits her laboratory studies are normal including LFTs her abdomen is soft minimally tender the abdominal drain is serosanguineous output without bile. Status at Discharge Cognitive/behavioral status at discharge: oriented Exam Vital Signs (past 8 hours): - 12/12/19 08:13 Temperature 97.6 F Pulse Rate 72 Respiratory Rate 20 Blood Pressure 148/84 H Pulse Oximetry 98 Oxygen Delivery Method Room Air Oxygen Flow Rate 0 Narrative Exam Narrative: General adult female alert oriented no acute distress Chest nonlabored respirations Abdomen soft minimally tender incisions clean dry intact AMANDA drain right upper quadrant serosanguineous output non bilious Objective Labs Result Diagrams: 12/12/19 04:48 12/12/19 04:48 Labs: Laboratory Results - last 24 hr 12/12/19 12/12/19 12/12/19 04:48 04:48 04:48 WBC 6.9 RBC 4.11 Hgb 11.6 L Hct 34.5 L MCV 83.9 MCH 28.2 MCHC 33.6 RDW 14.5 Plt Count 312 Neut % (Auto) 66.7 Lymph % (Auto) 18.0 L [place] % (Auto) 7.6 Eos % (Auto) 7.1 H Baso % (Auto) 0.6 Neut # (Auto) 4600 Lymph # (Auto) 1200 [place] # (Auto) 500 Eos # (Auto) 500 H Baso # (Auto) 0 Sodium 136 L Potassium 4.4 Chloride 105 Carbon Dioxide 29 BUN 8 Creatinine 0.74 Estimated GFR > 60.0 BUN/Creatinine Ratio 10.8 Glucose 112 H Calcium 8.0 L Phosphorus 3.5 Magnesium 2.1 Total Bilirubin 0.7 AST 46 H ALT 68 H Alkaline Phosphatase 100 Total Protein 5.0 L Albumin 2.8 L Globulin 2.2 Albumin/Globulin Ratio 1.3 Discharge Plan Discharge Plan Patient Disposition: Home Provider Discharge Comment: empty drain as instructed Discharge orders & Medications Prescriptions: Continued fenofibrate 54 mg tablet 54 mg PO DAILY RF: 0 omeprazole 20 mg capsule,delayed release(DR/EC) 20 mg PO DAILY Qty: 90 RF: 1 montelukast 10 mg tablet 10 mg PO DAILY PRN (Reason: allergies) RF: 0 oxybutynin chloride 5 mg tablet 10 mg PO DAILY RF: 0 docusate sodium [Colace] 100 mg capsule 100 mg PO BID Qty: 30 RF: 0 oxycodone 5 mg tablet 5 mg PO Q6H PRN (Reason: pain) Qty: 30 RF: 0 Follow up/Referrals: Dieter Souza MD [Physician] - 12/19/19 3:30 pm (12/18 @ 3:[address] souza please arrive 15 minutes prior to scheduled appointment ) Jean aCrlos Rivero ARNP [Primary Care Provider] - Diet/Activity/Treatments Diet: Low-fat Activity: No lifting >20 lbs x 4 weeks. Walking only for exercise for 4 weeks[address] while taking narcotics. Skin/Wound/Dressing Care Report to your healthcare provider any signs of infection, such as:: chills, fever, increased pain, unusual drainage and unusual redness Visit Report/Discharge Packet Instructions: DI for Maxim-Neff Drains, DI for Prescription Opioid Use, Oxycodone Discharge Data Primary Care Provider: Jean Carlos Rivero Attending Provider: Di Grover Admit Date/Time: 12/10/19 10:19 Discharges patient from system. Discharge Date/Time: 12/12/19 11:42 Quality VTE Deep Vein Thrombosis/Pulmonary Embolism Present on Admission: No
== END 2019-12-12 11:42 | disposition home or self-care (01) ==
LOC: ED 10:18 → AC 10:20
PROVIDERS: Specialist; Admitting Provider Surgery; Emergency Provider Emergency Medicine; PCP Registered Nurse Diabetes Educator; Visit Provider Surgery
DX: R10.9 Unspecified abdominal pain (principal); K59.00 Constipation, unspecified; N39.3 Stress incontinence (female) (male); Z90.49 Acquired absence of other specified parts of digestive tract; K21.9 Gastro-esophageal reflux disease without esophagitis; E78.5 Hyperlipidemia, unspecified; Z11.59 Encounter for screening for other viral diseases; Z23 Encounter for immunization
CPT/HCPCS: 36415; 74177; 80053; 83605; 83690; 83735; 84100; 84145; 85025; 85610; 85730; 87040; 87635; 90471; 90662; 96361; 96372; 96374; 96375; 96376; 99221; 99231; 99238; 99285; G0378; C9113; J1170; J1650; J1885; J2405; Q9967

== ENCOUNTER → 2020-07-12 08:36 | Outpatient (CLI) | payer MEDICARE, OTHER, SELFPAY ==
[2019-12-10 11:48] VITALS: BMI 25.6
--- NOTE | 2020-07-12 | DI.MRI.S_ITS ---
PROCEDURE: MR SHOULDER LT WO CON INDICATIONS: PAIN IN LEFT SHOULDER TECHNIQUE: Noncontrast oblique coronal T2 fast spin echo with fat saturation, oblique sagittal T1 spin echo and T2 fast spin echo with fat saturation, axial T1 spin echo and T2 fast spin echo with fat saturation through the shoulder. COMPARISON: None. FINDINGS: Rotator cuff: 3.5 cm AP dimension full-thickness rotator cuff tear involving the supraspinatus and infraspinatus tendons. This measures 2.5 cm in the transverse/longitudinal dimension as seen on coronal pulse sequences. Teres minor tendon appears intact. There is subscapularis tendinopathy and thickening with partial-thickness articular sided tear. Atrophy of the supraspinatus and infraspinatus muscles. There is diffuse fatty infiltration of the subscapularis and teres minor muscles. Bones and bursae: No bone marrow contusions or fractures. Moderate acromioclavicular joint degeneration. Acromion demonstrates conventional anatomy, without an os acromiale. Large joint effusion Capsule and soft tissues: Labrum: Ill-defined tear of the superior labrum. Posterior labral tear is also present. (image 10/). Incidental sublabral foramen. Biceps tendon: Intra-articular segment tendinopathy. No definite complete rupture. Rotator interval: Partial obliteration of the subcoracoid fat signal intensity. Coracohumeral ligament: Intact. IMPRESSION: Full-thickness rotator cuff tear as above. Atrophy of the supraspinatus and infraspinatus muscles. Large joint effusion Ill-defined posterior and superior labral tear Dictated by: Hola Albright M.D. on 07/12/2020 at 10:24 Approved by: Hola Albright M.D. on 07/12/2020 at 10:33
== END ==
PROVIDERS: PCP Registered Nurse Diabetes Educator; Referring Provider Orthopaedic Surgery; Visit Provider Orthopaedic Surgery
DX: M25.512 Pain in left shoulder (principal); M75.122 Complete rotator cuff tear or rupture of left shoulder, not specified as traumatic; M25.412 Effusion, left shoulder; S43.492A Other sprain of left shoulder joint, initial encounter; M19.012 Primary osteoarthritis, left shoulder
CPT/HCPCS: 73221

== ENCOUNTER → 2020-07-25 08:05 | Outpatient (CLI) | payer MEDICARE, OTHER, SELFPAY ==
[2019-12-10 11:48] VITALS: BMI 25.6
[2020-07-25 08:43] LABS: Add Manual Diff / Slide Review NO; Basophils Absolute Auto 100 /uL (0-100); Basophils Percent Auto 1.4 % (0-2); Eosinophils Absolute Auto 200 /uL (0-450); Eosinophils Percent Auto 2.9 % (2-4); Hematocrit 40.8 % (36-46); Hemoglobin 13.6 g/dL (12.0-16.0); Lymphocytes Absolute Auto 1100 /uL (1100-4500); Lymphocytes Percent Auto 15.8 % (25-40); Mean Corpuscular HGB Conc 33.4 % (30-36); Mean Corpuscular Hemoglobin 28.2 PG (26-34); Mean Corpuscular Volume 84.3 fL (80-100); Monocytes Absolute Auto 400 /uL (0-900); Monocytes Percent Auto 5.6 % (3-14); Neutrophils Absolute Auto 5200 /uL (1500-7000); Neutrophils Percent Auto 74.3 % (50-75); Platelet Count 412 X10^3/uL (150-400); Red Blood Cell Count 4.84 X10^6/uL (4.0-5.2); Red Cell Distribution Width 14.8 % (11.6-14.8); White Blood Cell Count 7.1 X10^3/uL (4.5-11.0)
[2020-07-25 08:52] LABS: Hemoglobin A1C% w Est Avg Glu 5.3 % (4.0-6.0)
[2020-07-25 09:26] LABS: HEMOLYSIS < 15 (0-50); Potassium 4.7 mmol/L (3.4-5.1)
[2020-07-25 09:27] LABS: BUN Creatinine Ratio 25.6 (6-22); Blood Urea Nitrogen 22 mg/dL (7-17); Calcium 9.4 mg/dL (8.4-10.2); Carbon Dioxide 26 mmol/L (22-32); Chloride 106 mmol/L (98-107); Estimated Glomerular Filt Rate > 60.0 mL/min (>60); Glucose 99 mg/dL (80-110); Sodium 139 mmol/L (137-145)
== END ==
PROVIDERS: PCP Registered Nurse Diabetes Educator; Referring Provider Orthopaedic Surgery; Visit Provider Orthopaedic Surgery
DX: Z01.818 Encounter for other preprocedural examination (principal); R73.9 Hyperglycemia, unspecified; M25.512 Pain in left shoulder; Z01.812 Encounter for preprocedural laboratory examination
CPT/HCPCS: 36415; 80048; 83036; 85025; 93005

== ENCOUNTER → 2020-08-01 09:14 | Outpatient (CLI) | payer MEDICARE, OTHER, SELFPAY ==
[2019-12-10 11:48] VITALS: BMI 25.6
[2020-08-01 13:41] LABS: COVID19 -Nasal RAPID Negative (Negative)
== END ==
PROVIDERS: PCP Registered Nurse Diabetes Educator; Visit Provider Physician Assistant
DX: Z01.812 Encounter for preprocedural laboratory examination (principal); Z20.822 Contact with and (suspected) exposure to COVID-19
CPT/HCPCS: 87635; C9803

== ENCOUNTER 2020-08-03 08:23 | Inpatient (IN) | payer MEDICARE, OTHER, SELFPAY ==
[2019-12-10 11:48] VITALS: BMI 25.6
[2020-07-31 09:49] VITALS: BMI 27.1
[2020-08-03] VITALS (17 sets, daily range): BP systolic 97–138; BP diastolic 40–80; PULSE 63–93; RESP 8–18; TEMP 35.8–36.4; O2SAT 91–100; BMI 27.1
--- NOTE | 2020-08-03 06:30 | DI.RAD.S_ITS ---
PROCEDURE: XR SHOULDER LT 1V INDICATIONS: Post op left total shoulder TECHNIQUE: Single view of the shoulder were acquired. COMPARISON: None. FINDINGS: Bones: No fractures or dislocations. Normal alignment after left total shoulder arthroplasty. No suspicious bony lesions. Visualized ribs appear intact. Soft tissues: No suspicious soft tissue calcifications. IMPRESSION: Normal alignment established after left total shoulder arthroplasty. Immediate postoperative examination. Dictated by: Sd Batres M.D. on 08/03/2020 at 13:16 Approved by: Sd Batres M.D. on 08/03/2020 at 13:17
[2020-08-03] MEDS: ACETAMINOPHEN 325 MG TABLET 975 MG PO (08:48)
[2020-08-03] MEDS: PREGABALIN 75 MG CAPSULE PO (08:49)
[2020-08-03] MEDS: LACTATED RINGERS 1,000 ML 42 ML IV ×2 (08:49→12:30)
[2020-08-03] MEDS: CELECOXIB 200 MG CAPSULE PO (08:49)
--- NOTE | 2020-08-03 10:06 | PM.PREOP ---
Pre-operative Note COVID-19 COVID-19 status: Negative Result date/Date tested (Pos, Neg/Pending): 08/01/20 Interval Note History & Physical reviewed/Exam performed by Physician: Yes Changes to H&P: No
[2020-08-03] MEDS: CEFAZOLIN 1 GM VIAL 2 GM IV (11:17)
[2020-08-03] MEDS: TRANEXAMIC ACID 1,000 MG VIAL 1000 MG INJ ×2 (11:18→12:35)
--- NOTE | 2020-08-03 11:20 | PM.PROC.1 ---
Procedures Date/Time Date of procedure: 08/03/20 Time of procedure: 10:51 Nerve Block Time out performed: Yes Local anesthetic used: bupivacaine 0.5% Amount of anesthesia used (mL): 12 Nerve blocks: brachial plexus (intrascalene) Procedure successful: Yes Patient tolerated procedure: well and no complications Complications: none Additional comments: Intrascalene block performed for post-op pain control at surgeon request. Patient was positioned with IV, O2, monitors and rescue meds available. Prepped and timeout performed. Target identified with continuous ultrasound guidance. 12 mL of bupivicaine 0.5% was injected perineurally with intermittent aspiration and injection. No blood, no paresthesias, no acute complications.
--- NOTE | 2020-08-03 11:35 | SUR.OPER ---
Beach chair with Schlein shoulder positioner. Lower body on padded OR bed. Head in foam padded head cradle, secured with straps. Non-operative arm secured <90 degrees abduction. Pillow under knees. Safety belt at thigh. Cloth tape over blanket over lower legs.
[2020-08-03] MEDS: BUPIVACAINE 0.5% (PF) VIAL 30 ML INJ (11:42)
--- NOTE | 2020-08-03 12:52 | PM.OP.1 ---
Operative Date/Time/Diagnoses Date of procedure: 08/03/20 Time of procedure: 12:53 Pre-op diagnosis: Left shoulder massive rotator cuff tear Post-op diagnosis: same Procedure & Clinicians Procedure: Left reverse total shoulder replacement Same procedure as scheduled: Yes Indications: The patient is had chronic left shoulder pain unresponsive to nonoperative therapies. Radiographic studies have revealed changes consistent with a massive rotator cuff tear. They have elected to proceed with reverse total shoulder replacement after discussion of the risks benefits and alternatives. Risks discussed included but were not limited to: Failure to improve, instability, infection, nerve damage, deep venous thrombosis, pulmonary embolism, stroke, coma, myocardial infarction and . Surgeon: Marty Marshall Cable Installer Repairer Helper: Parth Bruce Click Yes if Unassisted: No Anesthesia Type: General, Peripheral nerve block and Local Operative Notes Findings: Massive rotator cuff tear of the upper 2/3 of the subscapularis all the way to the teres minor. This was not a repairable tear. Closure Type: primary Specimen(s): none sent Prosthetic devices, grafts, tissues, transplants, or devices: Implants used in this procedure were manufactured by the [employer] and included an RSP reverse total shoulder system with a 30 mm screw length porous-coated glenoid base plate, 4 locking screws measuring 14, 14, 18 and 22 mm in length, a 32 mm diameter-4 mm glenoid head with retaining screw, and a standard length small shell 8 mm humeral prosthetic with a 32 mm neutral E plus humeral socket. Applied: implant(s) Estimated Blood Loss (mL): 100 Blood products transfused: none Procedure in detail: The patient was seen in the preoperative area where they identified the left shoulder as the operative site and this was marked with my initials. They received preoperative antibiotics and underwent the induction of an interscalene block. They were taken to the operating room and placed on the operating room table in a supine position with the underwent the induction of a general anesthetic. There were then repositioned in the ?beach chair? position using a dedicated positioner. All pressure points were well padded. The knees were slightly bent to prevent tension on the sciatic nerves. A time-out was performed. The left arm was prepared from the fingertips to the base of the neck with ChloraPrep in the usual fashion and draped through sterile drapes. An approximately 15 cm incision was created starting at the clavicle just above the coracoid and going to the deltoid insertion. The deltopectoral interval was used to access the shoulder taking the vein to the lateral side. The vein was damaged by a retractor part way through the case and coagulated. The upper 1 cm of the pectoralis major was released. The biceps tendon was identified and used as a guide to releasing the remaining subscapularis. The biceps itself was tenodesed over the pectoralis tendon using a suture. The subscapularis was tagged for later repair. The shoulder was dislocated and a proximal humeral osteotomy performed using an extramedullary guide. A proximal humeral protector was then placed. Retractors were placed access the glenoid. A 360 degree release was performed of the remaining subscapularis with care being taken to protect the axillary nerve. The soft tissues were removed circumferentially around the glenoid. The guide was used to drill the guide hole in the center of the inferior glenoid. The tap was placed and used as a guide for the reamer. The tap was then removed and the glenoid base plate inserted. The peripheral locking screws were then placed through the appropriate guide. A trial glenoid head was applied. We then turned our attention to the humerus. The proximal humeral protector was removed. Cylindrical reamers were used to size the canal. Broaching was then performed beginning with a small broach and working up until a line to line fit with the reamer was obtained. The guide for the proximal metaphyseal reamer was then applied and the metaphysis was reamed appropriately. The trial metaphyseal portion of the body was then applied to the broach. Trial reductions were performed and the size of the glenoid head and the cup were optimized. Stability was checked in maximal internal and external rotation and range of motion was checked to allow access to the top of the head, internal rotation to an excess of 50? in the ?scarecrow position? and the ability to reach the groin. The appropriate final prosthetic components were then opened. The glenoid head was impacted into position and checked for rotational and axial stability before placing the set screw. The humeral prosthetic was then impacted into position. The humeral cup was placed. The joint was relocated and irrigated. The deltopectoral interval was reapproximated with 0 Vicryl. Subcutaneous layer was closed with interrupted 3-0 Vicryl and skin with a running 3 0 V lock suture. Subcutaneous tissues were then infiltrated with 0.25% Marcaine for postoperative pain control. An Aquacel Ag dressing was applied and the patient's arm was placed in a sling. The patient was then transferred to the recovery room in good condition having tolerated the procedure well. Complications: none Post-operative Condition: stable Disposition: PACU Plan for aftercare: The patient will be allowed to do pendulums and to use her arm in front of her body below shoulder level for the 1st 2 weeks. A subscapularis repair was not performed so there is no need to protect the subscapularis. She will be discharged when she is safe for her home environment.
--- NOTE | 2020-08-03 13:03 | SUR.PHASEI ---
Pt arrived, xray taken report to TAMERA Ramos
--- NOTE | 2020-08-03 13:58 | SUR.PHASEI ---
PACU: REPORT GIVEN TO TAMERA ERICKSON IN ACUTE CARE. PATIENT BROUGHT UP TO RM 207 WITH ALL BELONGINGS ON 4L/NC . GREETED RN AT BEDSIDE FOR FACE TO FACE HANDOFF. VSS, BED LOCKED IN LOW POSITION WITH SCD'S. ON.
[2020-08-03] MEDS: LACTATED RINGERS 1,000 ML 100 ML IV (14:44)
[2020-08-03] MEDS: ACETAMINOPHEN 325 MG TABLET 650 MG PO ×2 (14:47→21:37)
--- NOTE | 2020-08-03 15:00 | PT.IIE ---
Current Diagnoses Strain of muscle(s) and tendon(s) of the rotator cuff of left shoulder, initial encounter (08/03/20) Surgery Performed Operation Date: 08/03/20 10:15 Actual Procedures p Total Shoulder Arthroplasty - Reverse(Left) - Marty Marshall MD Surgical History (Last Updated 07/31/20 @ 10:11 by Nelly Berrios RN) History of bladder suspension procedure History of colonoscopy History of surgery Hx of appendectomy Hx of cholecystectomy (12/06/19) Status post appendectomy Status post tubal ligation Medical History (Last Reviewed 06/12/20 @ 19:25 by SUZAN Weiss) Allergic rhinitis (11/24/13) Gallstone GERD (gastroesophageal reflux disease) Hyperlipidemia (11/24/13) Impaired fasting blood sugar Liver enzyme elevation Stress incontinence of urine (11/24/13) Urinary frequency Physical Therapy Inpatient Evaluation/Re-Eval M1 PT/OT-IP Prior Functional Status Start: 08/03/20 16:10 Freq: NEEDED Status: Active Protocol: Document 08/03/20 15:00 AB (Rec: 08/03/20 16:34 AB [id number]) Medical Review Prior Functional Status Medical History Reviewed Yes Communication able to make needs known Mobility and Gait pt stated that she is indpeendent with all mobilities and ambulation without AD Prior Functional Level (Other details) pt stated that she lives in [place] for ~ 5 months where she has a house but has a motor home when she goes here in [place] for 7 months. stated that she has a shop that she plans to stay on upon d/c. Home set up information is regarding pt's shop. Social History Household Members none Number of Floors (Floors) One Floor Number of Stairs To Enter/Railing? has a ramp to enter from the kitchen; pt has to get out of the shop to be able to use her port-a- potty Home Environment Standard Height Toilet,Walk in Shower Home Equipment Bedside Commode,Shower Seat without Backrest,Hand Held Shower Additional Social History Comment stated that her friend Bessie will assist her for ~ 3 days and afterwards, her son's GF ( ana) can assist her as needed but not stay with her plans to sleep on her recliner chair M2 PT-IP Current Condition Start: 08/03/20 16:10 Freq: NEEDED Status: Active Protocol: Document 08/03/20 15:00 AB (Rec: 08/03/20 16:34 AB [id number]) Physical Therapy Current Condition Current Condition Evaluation Date 08/03/20 Treatment Diagnosis s/p L TSA reverse; difficulty in walking Onset Date 08/03/20 Precautions Shoulder Precautions Sling,PROM,Internal Rotation to Body,No External Rotation, No Abduction,Forward Flexion to 90 degrees,Pendulums Other Precautions per Doctor's plan of care: pt can use arm in front of her body below shoulder level Weight Bearing Status Weight Bearing Status Non-Weight Bearing Allowed Weight Bearing Amount (enter % NWB on LUE or #) (%) M3 PT-IP Subjective Start: 08/03/20 16:10 Freq: NEEDED Status: Active Protocol: Document 08/03/20 15:00 AB (Rec: 08/03/20 16:34 [id number]) Subjective Physical Therapy Visit Type Type Initial Evaluation Visit Start Time 15:00 Visit Stop Time 16:10 Total Visit Minutes 70 Number of COMPOSITION WORKER Visits 0 Physical Therapy Visit Comments Patient Comments pt is agreeable to do PT Therapy Pain Assessment Pain Present Pain Present Denied Pain M4 PT-IP Mobility and Gait Start: 08/03/20 16:10 Freq: NEEDED Status: Active Protocol: Document 08/03/20 15:00 AB (Rec: 08/03/20 16:34 [id number]) PT-Bed Mobility Assessment Supine to Sit Supine to Sit Minimal Assistance,1 Person Assistance Sit to Supine Sit to Supine Standby Assistance PT-Transfer Assessment Sit to and From Stand Sit to and from Stand Contact Guard Assistance,1 Person Assistance,Use of Upper Extremities Equipment Transfer Assistive Device None,Gait Belt Orthotic/Prosthetic Devices or Brace: Yes Transfers Transfer Destination Toilet Transfer Technique ambulated without AD Transfer Ability Level of Assist Minimal Assistance,1 Person Assistance,Use of Upper Extremities Comments Mobility Comments educated pt on shoulder precautions. BP: 122/79, HR 80, O2 sat 97% at RA. pt completed supine to sit min A and cues with HOB elevated. pt plans to sleep on her recliner chair. educated pt on sling management and HEP. demonstrated to pt pendulum, elbow/hand/wrist exercises. adjusted pt's sling and PROM on elbow/hand/wrist conducted to demonstrate HEP as pt does not have sensation back on LUE and does not have motor control as of now. pt completed sit to stand CGA and requested to use the toilet. ambulated to the toilet without AD min A and cues. presents with unsteady waddling gait and pt can be impulsive. pt was able to complete sit to stand from the toilet using grab bar CGA, completed hygiene care but required assist with brief management with (+) LOB requiring min A for steadiness while pt manages her brief. pt ambulated to the sink min A and was able to maintain standing leaning against the sink while doing handwashing. pt ambulated back to the bed. completed sit to supine SBA. positioned in bed. call light and table placed within reach. informed pt regarding caregiver training and pt will call her friend/son's GF to come in. caregiver training set up tomorrow @ 10 am. Gait Assessment Gait Gait Assistance Required: Minimum Assistance Distance (Feet) 12 Able to Maintain Weight Bearing Status Yes During Gait Assistive Devices Assistive Device None,Gait Belt Orthotic/Prosthetic Devices or Brace: Yes Gait Deviations General Gait Pattern Antalgic,Decreased Stride Length,Decreased Feet Clearance,Narrow Based Gait, Step-to Gait Factors Limiting Gait Function Factors Limiting Gait Function Decreased Activity Tolerance, Decreased Sensation,Decreased Strength,Limited Range of Motion,Poor Balance,Poor Safety Awareness Comments Gait Comments pls refer to mobility section for details PT-Balance Assessment Sitting Balance and Reactions Static Sitting Balance Ability Good Dynamic Sitting Balance Ability Good Standing Balance and Reactions Static Standing Balance Ability Fair Dynamic Standing Balance Ability Fair Device Used without AD M5 PT-IP Objective Assessments Start: 08/03/20 16:10 Freq: NEEDED Status: Active Protocol: Document 08/03/20 15:00 AB (Rec: 08/03/20 16:34 AB [id number]) Orientation Orientation/Cognition Level of Alertness Alert Orientation Name,Place,Situation Language Function Ability No Deficits Noted Safety Awareness Decreased Safety Awareness Memory Description No Deficits Noted Gross Range of Motion Upper Extremity ROM Impairments LUE on sling Lower Extremity ROM Assessment Within Functional Limits Strength Lower Extremity Strength Assessment Within Functional Limits Comments Strength Comments pt still does not have sensation and motor control back on LUE after surgery Sensation Assessment Sensation Gross Sensation Left UE Impaired Light Touch Absent Proprioception (Position) Absent Sensation Description Numbness Muscle Tone Muscle Tone WNL No Other Assessments Other Other Assessments pt still has not regained motor control on LUE after surgery M6 PT-IP Treatment Start: 08/03/20 16:10 Freq: NEEDED Status: Active Protocol: Document 08/03/20 15:00 AB (Rec: 08/03/20 16:34 AB [id number]) Physical Therapy Treatment Exercises Exercises Elbow Flexion/Extension,Wrist ROM,Hand ROM Education Education Provided Precautions,Weight Bearing Status,Post-Op Packet,Safety Brace Education [place],Patient Other Treatments Other Treatment Performed demonstrated and conducted PROM on L elbow/wrist/hand educated and demonstrated pendulum to pt educated pt on sling management M7 PT-IP Assessment and Plan Start: 08/03/20 16:10 Freq: NEEDED Status: Active Protocol: Document 08/03/20 15:00 AB (Rec: 08/03/20 16:34 AB [id number]) PT Summary Assessment and Plan Potential Rehabilitation Potential Good Status of Condition at Evaluation Evolving Summary Impairments Pain,ROM,Strength,Balance, Coordination,Sensation,Tone, Cognition,Bed Mobility, Transfers,Gait,Activity Tolerance Assessment Summary pt requirig min A with mobility with (+) LOB in standing requiring min A and cues. caregiver training set up for tomorrow at 10 am. will continue to assess progress. pt plans to go home with her friend Bessie to assist her for the first 3 days and afterwards, her son or her son 's GF will be able to assist her as needed. Pt will also need outpt PT. Goals Bed Mobility Goal Independent Transfer Goal Independent Gait Goal Independent Gait Distance 200 Days to Meet Goals 5 Frequency of Treatment Frequency Of Treatment Twice a Day Treatment Plan Physical Therapy Treatment Plan Bed Mobility Training,Transfer Training,Gait Training, Therapeutic Exercise,Balance Retraining,Post Op Education, Discharge Planning,Hot or Cold Pack,Neuromuscular Re-ed, Coordination Retraining,Manual Therapy Precautions Shoulder Precautions Sling,PROM,Internal Rotation to Body,No External Rotation, No Abduction,Forward Flexion to 90 degrees,Pendulums Other Precautions per Doctor's plan of care: pt can use arm in front of her body below shoulder level Recommendations To Nursing Amount of Assist Needed 1 Person Assist Discharge Recommendations PT Discharge Recommendations Home with Assistance,Home with 24/7 Assist Available, Outpatient PT Transportation Needs at Discharge Private Vehicle
[2020-08-03] MEDS: DOCUSATE 100 MG CAPSULE PO (21:37)
[2020-08-03] MEDS: ASPIRIN EC 81 MG TABLET PO (21:37)
[2020-08-04] MEDS: LACTATED RINGERS 1,000 ML 100 ML IV (00:07)
[2020-08-04] MEDS: OXYCODONE IR 5 MG TABLET PO (04:55)
[2020-08-04 05:57] VITALS: BP 107/77; PULSE 86; RESP 16; TEMP 36.4; O2SAT 95
[2020-08-04 06:23] LABS: Hematocrit 34.6 % (36-46); Hemoglobin 11.9 g/dL (12.0-16.0)
[2020-08-04 07:50] VITALS: BP 132/69; PULSE 64; RESP 16; TEMP 37.3; O2SAT 97
[2020-08-04] MEDS: ACETAMINOPHEN 325 MG TABLET 650 MG PO (08:08)
[2020-08-04] MEDS: DOCUSATE 100 MG CAPSULE PO (08:09)
[2020-08-04] MEDS: ASPIRIN EC 81 MG TABLET PO (08:09)
[2020-08-04] MEDS: IBUPROFEN 400 MG TABLET PO (08:11)
--- NOTE | 2020-08-04 08:24 | PM.DS.1 ---
History of Present Illness History of Present Illness Date Patient Seen: 08/04/20 Time Patient Seen: 08:25 Chief complaint: Left Total Shoulder Arthroplasty - Reverse *OPB* Narrative: Pain [id number]. Denies fever or chills. Still having little numbness in her fingers. No nausea or vomiting. Discharge Providers Provider Date of admission: 08/03/20 08:23 Discharge Date: 08/04/20 Primary care physician: SUZAN Weiss Consults: 08/03/20 13:53 Consult to Discharge Planning Routine Comment: Consult to Physical Therapy Evaluate & Treat Comment: Physician Instructions: Pendulums, 90 FF, 0 abd, 0 ER, IR to body Discharge provider: Parth Bruce PA-C Summary Hospital Course Discharge Diagnosis: Massive rotator cuff, left shoulder Hospital Course: [address] [id number] Note Patient: Thelma Garcia LMR#: [id number]: [id number]/Sex: 69 / F Date of Service: 08/03/20Provider: Marty Marshall MD Operative Date/Time/Diagnoses Date of procedure: 08/03/20 Time of procedure: 12:53 Pre-op diagnosis: Left shoulder massive rotator cuff tear Post-op diagnosis: same Procedure & Clinicians Procedure: Left reverse total shoulder replacement Same procedure as scheduled: Yes Indications: The patient is had chronic left shoulder pain unresponsive to nonoperative therapies. Radiographic studies have revealed changes consistent with a massive rotator cuff tear. They have elected to proceed with reverse total shoulder replacement after discussion of the risks benefits and alternatives. Risks discussed included but were not limited to: Failure to improve, instability, infection, nerve damage, deep venous thrombosis, pulmonary embolism, stroke, coma, myocardial infarction and . Surgeon: Marty Marshall Dictating Machine Mechanic: Parth Bruce Click Yes if Unassisted: No Anesthesia Type: General, Peripheral nerve block and Local Operative Notes Findings: Massive rotator cuff tear of the upper 2/3 of the subscapularis all the way to the teres minor. This was not a repairable tear. Closure Type: primary Specimen(s): none sent Prosthetic devices, grafts, tissues, transplants, or devices: Implants used in this procedure were manufactured by the [employer] and included an RSP reverse total shoulder system with a 30 mm screw length porous-coated glenoid base plate, 4 locking screws measuring 14, 14, 18 and 22 mm in length, a 32 mm diameter-4 mm glenoid head with retaining screw, and a standard length small shell 8 mm humeral prosthetic with a 32 mm neutral E plus humeral socket. Applied: implant(s) Estimated Blood Loss (mL): 100 Blood products transfused: none Patient admitted to the hospital for left reverse total shoulder replacement. Patient consented to the same. Patient taken operating room yesterday underwent left reverse total shoulder replacement. Patient back in her room recovering well as in stable condition. Patient will work with physical therapy this morning. Patient will be discharged home today of safe for environment. Exam Vital Signs (past 8 hours): - 08/04/20 05:57 Temperature 97.6 F Pulse Rate 86 Respiratory Rate 16 Blood Pressure 107/77 Pulse Oximetry 95 Oxygen Delivery Method Nasal Cannula Oxygen Flow Rate 0 Narrative Exam Narrative: 69-year-old female resting comfortably in bed having breakfast in no apparent distress. Left shoulder dressing is Clean, dry, intact.. Motor functions intact distal left upper extremity. Sensation grossly intact to light touch left upper extremity. She has good capillary refill. Left arm is warm and dry. Objective Labs Result Diagrams: 08/04/20 05:43 Labs: Laboratory Results - last 24 hr 08/04/20 05:43 Hgb 11.9 L Hct 34.6 L PFSH Medical History Allergic rhinitis (11/24/13) Gallstone GERD (gastroesophageal reflux disease) Hyperlipidemia (11/24/13) Impaired fasting blood sugar Liver enzyme elevation Stress incontinence of urine (11/24/13) Urinary frequency Surgical History History of bladder suspension procedure History of colonoscopy History of surgery Hx of appendectomy Hx of cholecystectomy (12/06/19) Status post appendectomy Status post tubal ligation Family History Father Hypertension Heart disease Mother Hypertension Stroke Sister Colon cancer Social History marital status: unknown household members: none Smoking Status: Never smoker alcohol intake: current Discharge Assessment & Plan Assessment and Plan Assessment: Patient progressing as expected status post left reverse total shoulder replacement. Plan of Treatment: Patient will be allowed to do pendulums and to use her arm in front of her body below shoulder level for the 1st 2 weeks. Discharge home today after physical therapy if it is safe for environment. Discharge Plan Discharge Plan Patient Disposition: Home Provider Discharge Comment: Discharge home today after physical therapy if safe for home environment Discharge orders & Medications Prescriptions: New acetaminophen 325 mg Tablet 650 mg PO TID Qty: 60 RF: 0 ibuprofen 400 mg Tablet 400 mg PO Q6H PRN (Reason: Pain, Mild (1-3)) Qty: 60 RF: 0 aspirin 81 mg Tablet,Delayed Release (Dr/Ec) 81 mg PO BID Qty: 60 RF: 0 docusate sodium [DOK] 100 mg Capsule 100 mg PO BID Qty: 20 RF: 0 oxycodone 5 mg Tablet 5 mg PO Q3HR PRN (Reason: Pain, Moderate (4-6)) Qty: 40 RF: 0 Continued fenofibrate 54 mg tablet 54 mg PO DAILY Qty: 90 RF: 3 montelukast 10 mg tablet 10 mg PO DAILY PRN (Reason: allergies) RF: 0 oxybutynin chloride 5 mg tablet 10 mg PO DAILY PRN (Reason: When going out in public) RF: 0 Discontinued ibuprofen [Advil] 200 mg Tablet 400 mg PO Q6H PRN (Reason: Pain) RF: 0 Follow up/Referrals: Marty Marshall MD [Physician] - (2 weeks) Jean Carlos Rivero ARNP [Primary Care Provider] - Diet/Activity/Treatments Diet: Diet as Tolerated Activity: Pendulum exercises and use of her arm in front of her body below shoulder level for the 1st 2 weeks. Cold/Heat Therapy: Ice to shoulder as needed Skin/Wound/Dressing Care Report to your healthcare provider any signs of infection, such as:: chills, fever, increased pain, unusual drainage and unusual redness Dressing: Keep dressing clean and dry Visit Report/Discharge Packet Instructions: DI for Heart Failure, DI for Prescription Opioid Use, DI for Shoulder Replacement Stand Alone Forms: Surgery Discharge Discharge Data Primary Care Provider: Jean Carlos Rivero VTE Deep Vein Thrombosis/Pulmonary Embolism Present on Admission: No
[2020-08-04] MEDS: OXYCODONE IR 10 MG TABLET PO ×2 (09:30→11:58)
--- NOTE | 2020-08-04 10:41 | PT.IPTN ---
Current Diagnoses Strain of muscle(s) and tendon(s) of the rotator cuff of left shoulder, initial encounter (08/03/20) Surgery Performed Operation Date: 08/03/20 10:15 Actual Procedures p Total Shoulder Arthroplasty - Reverse(Left) - Marty Marshall MD Physical Therapy Treatment Note M2 PT-IP Current Condition Start: 08/03/20 16:10 Freq: NEEDED Status: Discharge Protocol: Document 08/03/20 15:00 AB (Rec: 08/03/20 16:34 AB [id number]) Physical Therapy Current Condition Current Condition Evaluation Date 08/03/20 Treatment Diagnosis s/p L TSA reverse; difficulty in walking Onset Date 08/03/20 Precautions Shoulder Precautions Sling,PROM,Internal Rotation to Body,No External Rotation, No Abduction,Forward Flexion to 90 degrees,Pendulums Other Precautions per Doctor's plan of care: pt can use arm in front of her body below shoulder level Weight Bearing Status Weight Bearing Status Non-Weight Bearing Allowed Weight Bearing Amount (enter % NWB on LUE or #) (%) M3 PT-IP Subjective Start: 08/03/20 16:10 Freq: NEEDED Status: Discharge Protocol: Document 08/04/20 10:00 CLB (Rec: 08/04/20 12:29 CLB [id number]) Subjective Physical Therapy Visit Type Type Treatment Note Visit Start Time 10:00 Visit Stop Time 10:41 Total Visit Minutes 41 Notes Rita present for CG training Number of MANAGER OF SECURITY Visits 1 Physical Therapy Visit Comments Patient Comments pt is agreeable to do PT Therapy Pain Assessment Pain When Pain Assessed During Mobility Pain Present Pain Present Pain Reported Location Left Shoulder Scale Used did not state Description Pulling Pain Behaviors Holding Area,[place] M4 PT-IP Mobility and Gait Start: 08/03/20 16:10 Freq: NEEDED Status: Discharge Protocol: Document 08/04/20 10:00 CLB (Rec: 08/04/20 12:29 CLB [id number]) PT-Bed Mobility Assessment Supine to Sit Supine to Sit Standby Assistance,1 Person Assistance Scooting Scooting to Edge of Bed Standby Assistance PT-Transfer Assessment Sit to and From Stand Sit to and from Stand Standby Assistance,1 Person Assistance,Use of Upper Extremities Equipment Transfer Assistive Device None,Gait Belt Orthotic/Prosthetic Devices or Brace: Yes Transfers Transfer Destination Chair Transfer Technique ambulated without AD Transfer Ability Level of Assist Standby Assistance,1 Person Assistance,Use of Upper Extremities Comments Mobility Comments Pt completed bed mobility SBA then ambulated SBA w/o AD to chair sitting SBA. MANAGER OF SECURITY demonstrated doffing sling. Pt performed elbow, wrist and finger exercises and pendulum. Pt's CG Rita was able to simone sling then able to doff and simone sling again for practise. Pt stood from chair SBA and ambulated in ~220ft w/ o AD SBA. Pt returned to room sitting in chair with all needs within reach and Wiona present. Informed RN of pt mobility. Gait Assessment Gait Gait Assistance Required: Standby Assistance,1 Person Assist Assistive Devices Assistive Device None,Gait Belt Orthotic/Prosthetic Devices or Brace: Yes Gait Deviations General Gait Pattern Antalgic,Decreased Stride Length,Decreased Feet Clearance,Narrow Based Gait Factors Limiting Gait Function Factors Limiting Gait Function Decreased Activity Tolerance, Decreased Sensation,Decreased Strength,Limited Range of Motion,Poor Balance Comments Gait Comments pls refer to mobility section for details Stair Climbing Assessment Comments Stair Climbing Comments ramp entry PT-Balance Assessment Sitting Balance and Reactions Static Sitting Balance Ability Good Dynamic Sitting Balance Ability Good Standing Balance and Reactions Static Standing Balance Ability Fair Dynamic Standing Balance Ability Fair Device Used without AD M5 PT-IP Objective Assessments Start: 08/03/20 16:10 Freq: NEEDED Status: Discharge Protocol: Document 08/03/20 15:00 AB (Rec: 08/03/20 16:34 AB [id number]) Orientation Orientation/Cognition Level of Alertness Alert Orientation Name,Place,Situation Language Function Ability No Deficits Noted Safety Awareness Decreased Safety Awareness Memory Description No Deficits Noted Gross Range of Motion Upper Extremity ROM Impairments LUE on sling Lower Extremity ROM Assessment Within Functional Limits Strength Lower Extremity Strength Assessment Within Functional Limits Comments Strength Comments pt still does not have sensation and motor control back on LUE after surgery Sensation Assessment Sensation Gross Sensation Left UE Impaired Light Touch Absent Proprioception (Position) Absent Sensation Description Numbness Muscle Tone Muscle Tone WNL No Other Assessments Other Other Assessments pt still has not regained motor control on LUE after surgery M6 PT-IP Treatment Start: 08/03/20 16:10 Freq: NEEDED Status: Discharge Protocol: Document 08/04/20 10:00 CLB (Rec: 08/04/20 12:29 CLB [id number]) Physical Therapy Treatment Exercises Exercises Shoulder Pendulums,Elbow Flexion/Extension,Wrist ROM, Hand ROM Education Education Provided Precautions,Weight Bearing Status,Post-Op Packet,Safety Brace Education [place],Caregiver Other Treatments Other Treatment Performed demonstrated and conducted PROM on L elbow/wrist/hand educated and demonstrated pendulum to pt educated pt on sling management M7 PT-IP Assessment and Plan Start: 08/03/20 16:10 Freq: NEEDED Status: Discharge Protocol: Document 08/04/20 10:00 CLB (Rec: 08/04/20 12:29 CLB [id number]) PT Summary Assessment and Plan Summary Impairments Pain,ROM,Strength,Balance, Coordination,Sensation,Tone, Cognition,Bed Mobility, Transfers,Gait,Activity Tolerance Progress Towards Goals Progressing Toward Goals Assessment Summary Pt improving with all mobility , pt requiring SBA for all mobility and required assist from CG Rita with simone/doff sling. Fernandosaadia is pt's son's girlfriend and will be available to assist pt as needed. Goals Bed Mobility Goal Independent Transfer Goal Independent Gait Goal Independent Gait Distance 200 Days to Meet Goals 5 Frequency of Treatment Frequency Of Treatment Twice a Day Treatment Plan Physical Therapy Treatment Plan Bed Mobility Training,Transfer Training,Gait Training, Therapeutic Exercise,Balance Retraining,Post Op Education, Discharge Planning,Hot or Cold Pack,Neuromuscular Re-ed, Coordination Retraining,Manual Therapy Precautions Shoulder Precautions Sling,PROM,Internal Rotation to Body,No External Rotation, No Abduction,Forward Flexion to 90 degrees,Pendulums Other Precautions per Doctor's plan of care: pt can use arm in front of her body below shoulder level Discharge Recommendations PT Discharge Recommendations Home with Assistance,Home with / Assist Available, Outpatient PT Transportation Needs at Discharge Private Vehicle
--- NOTE | 2020-08-04 11:09 | PC.NURSE ---
Pt is dressed and ready for discharge home with Caregiver. Went over d/c instructions with both-discussed d/c meds, time of last dose, reviewed stroke education, discussed using an ice pack to help reduce swelling and inflammation for no longer than 20 minutes each time, reminded Pt not to drive while taking narcotics, to drink lots of fluids to prevent constipation or dehydration, and to consider stool softeners or similar if she experiences constipation. Pt to use sling as needed for comfort and support and follow up as scheduled.
--- NOTE | 2020-08-04 12:02 | CM.IDA ---
Initial DCP Assessment Note Pt is a 69 yo female, resident of [place], now POD#1 from shoulder surgery w/ Dr Marshall PCP: Jean Carlos Rivreo Payer: SAMANTHA/Christ Reviewed chart, pt discussed in multidisciplinary rounds this morning. Therapy has cleared pt for return home w/family to assist and pt has planned for home, DC order from Ortho has already been initiated this morning. Patient eager to return home and has arranged assist from family/friends. No needs expected from DC planning team although will remain available in case this changes today. LORRAINE Durand
--- NOTE | 2020-08-04 12:17 | PC.NURSE ---
Pt out via w/c by MATE [facility] to POV with Son and all belongings.
== END 2020-08-04 12:18 | disposition home or self-care (01) | DRG 483 ==
LOC: OR 08:24 → AC 14:39
PROVIDERS: Admitting Provider Orthopaedic Surgery; PCP Registered Nurse Diabetes Educator; Referring Provider Registered Nurse Diabetes Educator; Visit Provider Orthopaedic Surgery
PROC: 0RRK00Z Replacement of Left Shoulder Joint with Reverse Ball and Socket Synthetic Substitute, Open Approach (ICD-10-PCS; CPT 23472; principal; 2020-08-03 10:15)
DX: M75.102 Unspecified rotator cuff tear or rupture of left shoulder, not specified as traumatic (principal); Z20.822 Contact with and (suspected) exposure to COVID-19
CPT/HCPCS: 36415; 73020; 85014; 85018; 87635; 97110; 97116; 97162; 97530; C1776; C9803; J0330; J0690; J2250; J2704

== ENCOUNTER → 2021-08-16 07:14 | Outpatient (CLI) | payer MEDICARE, OTHER, SELFPAY ==
[2020-08-03 12:14] VITALS: BMI 27.1
[2021-08-16 09:16] LABS: Hematocrit 41.8 % (36-46); Mean Corpuscular HGB Conc 33.4 % (30-36); Mean Corpuscular Hemoglobin 27.8 PG (26-34); Mean Corpuscular Volume 83.1 fL (80-100); Platelet Count 412 X10^3/uL (150-400); Red Blood Cell Count 5.03 X10^6/uL (4.0-5.2); Red Cell Distribution Width 14.6 % (11.6-14.8); White Blood Cell Count 6.4 X10^3/uL (4.5-11.0)
[2021-08-16 09:26] LABS: Hemoglobin A1C% w Est Avg Glu 5.4 % (4.0-6.0)
[2021-08-16 09:44] LABS: Alanine Aminotransferase 38 IU/L (<35); Albumin 4.2 g/dL (3.5-5.0); Albumin Globulin Ratio 1.8 (1.0-2.8); Alkaline Phosphatase 57 U/L (38-126); Aspartate Aminotransferase 46 IU/L (14-36); BUN Creatinine Ratio 16.5 (6-22); Bilirubin Total 0.5 mg/dL (0.2-1.3); Blood Urea Nitrogen 14 mg/dL (7-17); Calcium 9.2 mg/dL (8.4-10.2); Carbon Dioxide 29 mmol/L (22-32); Chloride 104 mmol/L (98-107); Cholesterol 182 mg/dL (140-199); Estimated Glomerular Filt Rate > 60 mL/min (>60); Globulin 2.3 g/dL (1.7-4.1); Glucose 95 mg/dL (80-110); HDL Cholesterol 55 mg/dL (40-60); HEMOLYSIS < 15 (0-50); LDL Cholesterol Calculated 110 mg/dL (<100); Potassium 5.2 mmol/L (3.4-5.1); Sodium 139 mmol/L (137-145); Total Protein 6.5 g/dL (6.3-8.2); Triglycerides 85 mg/dL (35-150)
[2021-08-16 10:10] LABS: TSH w/ Reflex to FT4 5.07 uIU/mL (0.47-4.68)
[2021-08-16 10:38] LABS: Free T4, Direct Thyroxine 0.94 ng/dL (0.78-2.19)
== END ==
PROVIDERS: PCP Registered Nurse Diabetes Educator; Referring Provider Registered Nurse Diabetes Educator; Visit Provider Registered Nurse Diabetes Educator
DX: E78.5 Hyperlipidemia, unspecified (principal); R73.01 Impaired fasting glucose; J30.9 Allergic rhinitis, unspecified; K21.9 Gastro-esophageal reflux disease without esophagitis; R74.8 Abnormal levels of other serum enzymes
CPT/HCPCS: 36415; 80053; 80061; 83036; 84439; 84443; 85027

== ENCOUNTER → 2021-10-29 07:04 | Outpatient (CLI) | payer MEDICARE, OTHER, SELFPAY ==
[2020-08-03 12:14] VITALS: BMI 27.1
[2021-10-29 08:24] LABS: Mean Corpuscular HGB Conc 34.2 % (30-36); Mean Corpuscular Hemoglobin 28.5 PG (26-34); Mean Corpuscular Volume 83.4 fL (80-100); Platelet Count 428 X10^3/uL (150-400); Red Blood Cell Count 4.92 X10^6/uL (4.0-5.2); White Blood Cell Count 6.8 X10^3/uL (4.5-11.0)
[2021-10-29 08:51] LABS: Alanine Aminotransferase 24 IU/L (<35); Albumin 4.3 g/dL (3.5-5.0); Albumin Globulin Ratio 1.8 (1.0-2.8); Alkaline Phosphatase 56 U/L (38-126); Aspartate Aminotransferase 31 IU/L (14-36); BUN Creatinine Ratio 20.4 (6-22); Bilirubin Total 0.5 mg/dL (0.2-1.3); Blood Urea Nitrogen 19 mg/dL (7-17); Calcium 9.3 mg/dL (8.4-10.2); Carbon Dioxide 29 mmol/L (22-32); Chloride 104 mmol/L (98-107); Estimated Glomerular Filt Rate > 60 mL/min (>60); Globulin 2.4 g/dL (1.7-4.1); Glucose 94 mg/dL (80-110); HEMOLYSIS < 15 (0-50); Potassium 4.7 mmol/L (3.4-5.1); Sodium 138 mmol/L (137-145); Total Protein 6.7 g/dL (6.3-8.2)
[2021-10-29 10:24] LABS: Free T4, Direct Thyroxine 0.88 ng/dL (0.78-2.19)
[2021-10-29 20:11] LABS: Hep C Virus Ab w/Reflex Quant NEGATIVE s/c (NEGATIVE)
[2021-10-30 00:08] LABS: Hepatitis B Core AB w/Reflex Negative (Negative)
[2021-10-31 15:44] LABS: Hepatitis B Surface Antigen NEGATIVE s/c (NEGATIVE)
== END ==
PROVIDERS: PCP Registered Nurse Diabetes Educator; Referring Provider Registered Nurse Diabetes Educator; Visit Provider Registered Nurse Diabetes Educator
DX: R74.8 Abnormal levels of other serum enzymes (principal); E87.5 Hyperkalemia; R79.89 Other specified abnormal findings of blood chemistry
CPT/HCPCS: 36415; 80053; 84439; 84443; 85027; 86704; 86803; 87340

== ENCOUNTER → 2021-11-27 09:16 | Outpatient (CLI) | payer MEDICARE, OTHER, SELFPAY ==
[2020-08-03 12:14] VITALS: BMI 27.1
[2021-11-27 10:03] LABS: COVID19 -Nasal RAPID Negative (Negative)
== END ==
PROVIDERS: PCP Registered Nurse Diabetes Educator; Visit Provider Obstetrics & Gynecology
DX: Z20.822 Contact with and (suspected) exposure to COVID-19 (principal); Z01.812 Encounter for preprocedural laboratory examination
CPT/HCPCS: 87635

== ENCOUNTER 2021-11-29 08:54 | Day surgery (SDC) | payer MEDICARE, OTHER, SELFPAY ==
[2020-08-03 12:14] VITALS: BMI 27.1
[2021-11-29] VITALS (9 sets, daily range): BP systolic 119–144; BP diastolic 65–84; PULSE 61–80; RESP 10–17; TEMP 36.2–37.2; O2SAT 94–98; BMI 27.6
--- NOTE | 2021-11-29 13:39 | PM.PREOP ---
Pre-operative Note COVID-19 COVID-19 status: Negative Result date/Date tested (Pos, Neg/Pending): 11/27/21 Criteria for continued procedure: Non-surgical alternatives not available or appropriate per current SOC Interval Note History & Physical reviewed/Exam performed by Physician: Yes Changes to H&P: No
[2021-11-29] MEDS: LACTATED RINGERS 1,000 ML 42 ML IV (15:05)
[2021-11-29] MEDS: CEFAZOLIN 2 GM/100 ML PREMIX 100 ML IV (16:05)
--- NOTE | 2021-11-29 16:19 | SUR.OPER ---
Lithotomy on padded OR bed, head on pillow, arms secured on padded arm boards at <90 degrees abduction. Legs secured in padded yellow fins stirrups.
[2021-11-29] MEDS: BUPIVACAINE 0.5% W/ EPI (PF) 30 ML VIAL INJ (16:25)
[2021-11-29] MEDS: OXYCODONE IR 5 MG TABLET PO ×2 (17:12→18:38)
--- NOTE | 2021-11-29 17:20 | SUR.PHASEI ---
1720 Dr Mcleod at bedside assessing pt.
--- NOTE | 2021-11-29 17:30 | PM.GYNOP.1 ---
Operative Date/Time/Diagnoses Date of procedure: 11/29/21 Time of procedure: 15:45 Pre-op diagnosis: Stress urinary incontinence Post-op diagnosis: same Procedure & Clinicians Procedure: Procedures Operation Date: 11/29/21 10:15 Actual Procedure Side Surgeon umm dye cystoscopy Demond Mcleod MD Indications: Nolvia is a 73-year-old status post menopause in her 50s who presented for evaluation of urinary incontinence.? Patient has had 1 spontaneous vaginal and in 1978 underwent hysterectomy at the time of ruptured appendix at [facility] in [place], [place].? No records of that surgery are available but she did not require hormone replacement therapy following the surgery therefore it would seem probable that the ovaries remain in-situ.? In 2010, the patient subsequently underwent ?bladder lift? surgery the following the surgery began to experience incontinence with any significant physical activity.? At her postop visit, it was commented that the portion of the surgery done to prevent subsequent leakage had not been performed.? Again, there are no records available for review and even in looking for her surgery report in existing versions of [facility], no record of her care then can be found.? Patient has done physical therapy for pelvic floor strengthening which provided little benefit.? Since 2010 her stress urinary incontinence has progressively worsened and over the last few years especially since @ 2019, urge incontinence has become more frequent.? She was started on oxybutynin by her primary care provider and her dose has gradually increased from 5 mg daily to her current dose of 15 mg daily without significant benefit according to the patient.? Patient was on oral hormone replacement therapy after experiencing menopause in her early 50s but has not been on HRT of any form for at least the last 15 years.? She has no history of breast cancer and her mammograms are current.? She denies any history of urinary tract infections.? She is not sexually active and has no plans to become active following the of her . After consideration of all treatment options, the patient has opted to proceed with placement of a mid urethral sling (Ethicon TVT) and she presents today for her scheduled surgery. Surgeon: Demond Mcleod Anesthesia Type: General Operative Notes Findings: Post-surgical anterior vaginal wall scarring. Normal bladder. Closure Type: primary Specimen(s): none Estimated blood loss (mL): 50 Blood products transfused: none Procedure in detail: With the patient under satisfactory general anesthesia in the modified dorsal lithotomy position, the perineum, vagina, and lower abdomen were prepped and draped in the usual fashion for TVT. A pre-surgical safety time-out was then taken in accordance with [facility] protocols. A Calvert catheter was inserted in the bladder for drainage. A weighted speculum was placed in the vagina and the anterior wall of the vaginal canal was exposed. The mid urethra was identified by palpation of the Calvert balloon and the vaginal mucosa and periurethral tissues were infiltrated with 0.5% Marcaine with epinephrine. A 2 cm longitudinal incision of the vaginal mucosa immediately underneath the mid urethra was made and undermined laterally with Metzenbaum scissors. The Ethicon TVT was then introduced retropubically 1st on the right side and then on the left upward through the skin of the mons. The Calvert catheter was then removed and cystoscopy performed with a 70 degree cystoscope. The bladder was normal in all respects with no evidence of any injury related to passage of the TVT sling. The cystoscope was then withdrawn and the TVT brought completely through the skin incisions and placed properly under the mid urethra without tension. Once the sling was in the proper position without tension, the sleeves were removed from the TVT and the TVT trimmed. Proper placement and lack of tensioning was confirmed and closure of the mucosal defect was performed with 3-0 chromic catgut suture using a running interlocking stitch. Pressure was maintained on the suprapubic and retropubic spaces for approximately 5 minutes and no significant bleeding was noted. Skin glue was applied to the suprapubic incisions and the speculum was removed from the vagina. The procedure was then terminated and the patient awakened from anesthesia. She was then transferred to the PACU for period of observation recovery having tolerated procedure well. Complications: none Post-operative Condition: stable Disposition: PACU Plan for aftercare: Routine postoperative care. Patient may need to stay overnight if she is unable to void and/or requires recatheterization.
--- NOTE | 2021-11-29 18:04 | SUR.PHASEII ---
1751 pt up to restroom and voided 200ml clear yellow urine. Bladder scanned [address] Childers notified at 1803 and he stated to have pt attempt to void again in approximately 15 minutes and notify him of the results.
[2021-11-29] MEDS: ACETAMINOPHEN 325 MG TABLET 975 MG PO (18:40)
[2021-11-29] MEDS: KETOROLAC 30 MG/ML VIAL IV (18:49)
--- NOTE | 2021-11-29 18:53 | SUR.PHASEII ---
182 pt up to restroom and voided 250 ml clear yellow urine. Pt bladder scanned with [address] Mcleod notified and he stated that pt can discharge home. Dr Mcleod also ordered 30 mg IV Toradol now for pain.
== END 2021-11-29 19:36 | disposition home or self-care (01) ==
PROVIDERS: PCP Registered Nurse Diabetes Educator; Referring Provider Obstetrics & Gynecology; Visit Provider Obstetrics & Gynecology
PROC: 0TSD0ZZ Reposition Urethra, Open Approach (ICD-10-PCS; CPT 57288; principal; 2021-11-29 10:15)
DX: N39.3 Stress incontinence (female) (male) (principal)
CPT/HCPCS: 57288; C1771; J0690; J1100; J1885; J2405; J2704; J3010

== ENCOUNTER → 2022-09-30 10:28 | Outpatient (CLI) | payer MEDICARE, OTHER, SELFPAY ==
[2020-08-03 12:14] VITALS: BMI 27.1
[2022-09-30 11:22] LABS: Add Manual Diff / Slide Review NO; Basophils Absolute Auto 100 /uL (0-100); Basophils Percent Auto 1.2 % (0-2); Eosinophils Absolute Auto 300 /uL (0-450); Eosinophils Percent Auto 3.5 % (2-4); Hematocrit 40.7 % (36-46); Hemoglobin 13.8 g/dL (12.0-16.0); Lymphocytes Absolute Auto 1100 /uL (1100-4500); Lymphocytes Percent Auto 15.4 % (25-40); Mean Corpuscular Hemoglobin 28.7 PG (26-34); Mean Corpuscular Volume 84.4 fL (80-100); Monocytes Absolute Auto 400 /uL (0-900); Monocytes Percent Auto 5.1 % (3-14); Neutrophils Absolute Auto 5300 /uL (1500-7000); Neutrophils Percent Auto 74.8 % (50-75); Platelet Count 399 X10^3/uL (150-400); Red Blood Cell Count 4.82 X10^6/uL (4.0-5.2); Red Cell Distribution Width 15.2 % (11.6-14.8); White Blood Cell Count 7.1 X10^3/uL (4.5-11.0)
[2022-09-30 12:07] LABS: Alanine Aminotransferase 28 IU/L (<35); Albumin 4.5 g/dL (3.5-5.0); Albumin Globulin Ratio 1.8 (1.0-2.8); Alkaline Phosphatase 63 U/L (38-126); Aspartate Aminotransferase 36 IU/L (14-36); Bilirubin Total 0.7 mg/dL (0.2-1.3); Blood Urea Nitrogen 17 mg/dL (7-17); Carbon Dioxide 29 mmol/L (22-32); Chloride 103 mmol/L (98-107); Cholesterol 241 mg/dL (140-199); Estimated Glomerular Filt Rate > 60 mL/min (>60); Globulin 2.5 g/dL (1.7-4.1); Glucose 100 mg/dL (80-110); HDL Cholesterol 64 mg/dL (40-60); HEMOLYSIS < 15 (0-50); LDL Cholesterol Calculated 152 mg/dL (<100); Potassium 4.2 mmol/L (3.4-5.1); Sodium 138 mmol/L (137-145); Triglycerides 123 mg/dL (35-150)
[2022-09-30 12:18] LABS: TSH w/ Reflex to FT4 3.38 uIU/mL (0.47-4.68)
== END ==
PROVIDERS: PCP Registered Nurse Diabetes Educator; Referring Provider Registered Nurse Diabetes Educator; Visit Provider Registered Nurse Diabetes Educator
DX: E78.5 Hyperlipidemia, unspecified (principal); R73.01 Impaired fasting glucose; R74.8 Abnormal levels of other serum enzymes; R79.89 Other specified abnormal findings of blood chemistry
CPT/HCPCS: 36415; 80053; 80061; 84443; 85025

== ENCOUNTER → 2022-10-07 09:47 | Outpatient (CLI) | payer MEDICARE, OTHER, SELFPAY ==
[2020-08-03 12:14] VITALS: BMI 27.1
--- NOTE | 2022-10-07 09:48 | DI.RAD.S_ITS ---
Bone Density Report Name: TATIANA GOINS Age: 72 Sex: Female Ethnicity: White Date of : 1950 Indication: postmenopausal; screening for osteoporosis; Referring Provider: ARGENTINA TOBAR Study: Bone densitometry was performed. Exam Date: October 07, 2022 Accession number: [id number] Bone Density: Region BMD T-score Z-score Classification AP Spine(L1-L4) 1.016 -0.3 2.0 Normal Femoral Neck (Left) 0.626 -2.0 -0.1 Osteopenia Total Hip (Left) 0.842 -0.8 0.8 Normal Femoral Neck (Right) 0.684 -1.5 0.4 Osteopenia Total Hip (Right) 0.859 -0.7 0.9 Normal Total Hip Mean 0.850 -0.8 0.9 Normal World Health Organization criteria for BMD impression classify patients as: Normal (T-score at or above -1.0), Osteopenia (T-score between -1.0 and -2.5), or Osteoporosis (T-score at or below -2.5). 10-year Fracture Risk(1): Major Osteoporotic Fracture 12% Hip Fracture 2.4% Reported Risk Factors: [place] (), Neck BMD=0.626, BMI=29.3 (1) FRAX(R) Version 3.08. Fracture probability calculated for an untreated patient. Fracture probability may be lower if the patient has received treatment. Impression: The patient has low bone mass, based on the Left Femoral Neck T-score. The patient has an estimated ten-year risk of hip fracture of 2.4% and an estimated ten-year risk of major fracture of 12%, based on the WHO FRAX algorithm. Discussion: BONE DENSITY IS LOW AT ONE OR MORE SKELETAL SITES. This patient's lowest T-score is low at one or more skeletal sites. It meets the World Health Organization's (WHO) criteria for low bone mass (T-score between -1.0 and -2.5). The patient's 10-year risk of fracture as calculated by FRAX is less than the threshold where pharmacological therapy is recommended by the National Osteoporosis Foundation (NOF). However, all treatment decisions require clinical judgment and consideration of individual patient factors, including patient preferences, comorbidities, previous drug use, risk factors not captured in the FRAX model (e.g., frailty, falls, vitamin D deficiency, increased bone turnover, interval significant decline in bone density) and possible under or overestimation of fracture risk by FRAX. The patient should follow a healthful lifestyle (good nutrition with adequate calcium and vitamin D, and appropriate weight-bearing exercise). Follow-Up: Consider repeating this study in 2 to 3 years to reassess this patient's status, or sooner if there is some new clinical indication. Reported by: BALA ALVARADO MD on 10/07/2022 10:15:00 AM.
== END ==
PROVIDERS: PCP Registered Nurse Diabetes Educator; Referring Provider Registered Nurse Diabetes Educator; Visit Provider Registered Nurse Diabetes Educator
DX: Z13.820 Encounter for screening for osteoporosis (principal); M85.852 Other specified disorders of bone density and structure, left thigh; Z78.0 Asymptomatic menopausal state
CPT/HCPCS: 77080

== ENCOUNTER → 2023-05-27 07:03 | Outpatient (CLI) | payer MEDICARE, OTHER, SELFPAY ==
[2020-08-03 12:14] VITALS: BMI 27.1
[2023-05-27 08:36] LABS: Cholesterol 226 mg/dL (140-199); HDL Cholesterol 60 mg/dL (40-60); LDL Cholesterol Calculated 148 mg/dL (<100); Triglycerides 90 mg/dL (35-150)
== END ==
PROVIDERS: PCP Registered Nurse Diabetes Educator; Referring Provider Registered Nurse Diabetes Educator; Visit Provider Registered Nurse Diabetes Educator
DX: E78.5 Hyperlipidemia, unspecified (principal)
CPT/HCPCS: 36415; 80061

== ENCOUNTER → 2023-08-15 07:53 | Outpatient (CLI) | payer MEDICARE, OTHER, SELFPAY ==
[2020-08-03 12:14] VITALS: BMI 27.1
--- NOTE | 2023-08-15 | DI.MG.S_ITS ---
BILATERAL DIGITAL SCREENING MAMMOGRAM 3D/2D WITH CAD: 08/15/2023 Comparison is made to exams dated: 03/11/2022 mammogram, 05/08/2020 mammogram, and 03/18/2018 mammogram - Outside facility. Both breasts are heterogeneously dense, which may obscure small masses (category c / 51-75% glandular tissue). Current study was also evaluated with a Computer Aided Detection (CAD) system. No significant masses, calcifications, or other findings are seen in either breast. There has been no significant interval change. IMPRESSION: NEGATIVE There is no mammographic evidence of malignancy. A 1 year screening mammogram is recommended. Based on the Tyrer Cuzick model (a risk assessment model) the patient's lifetime risk is 6.1% and her 10 year risk is 4.6%. According to the ACR, ACS, and NCCN guidelines, an annual breast MRI exam along with mammogram is recommended if the patient's lifetime risk is 20% or greater. This exam was interpreted at Station ID: [id number]. NOTE: For mammograms, a report in lay terms will be sent to the patient. Approximately 15% of breast malignancies will not be visualized mammographically. In the management of a palpable breast mass, a negative mammogram must not discourage biopsy of a clinically suspicious lesion. Electronically Signed By: Gilbert michael/mumtaz:08/17/2023 07:22:51 letter sent: Normal Exam ACR BI-RADS Category 1: Negative [id number]
== END ==
PROVIDERS: PCP Registered Nurse Diabetes Educator; Referring Provider Registered Nurse Diabetes Educator; Visit Provider Registered Nurse Diabetes Educator
DX: Z12.31 Encounter for screening mammogram for malignant neoplasm of breast (principal); R92.333 Mammographic heterogeneous density, bilateral breasts
CPT/HCPCS: 77063; 77067

== ENCOUNTER → 2023-08-26 06:54 | Outpatient (CLI) | payer MEDICARE, OTHER, SELFPAY ==
[2020-08-03 12:14] VITALS: BMI 27.1
[2023-08-26 07:26] LABS: Hematocrit 39.7 % (36-46); Hemoglobin 13.5 g/dL (12.0-16.0); Mean Corpuscular HGB Conc 33.9 % (30-36); Mean Corpuscular Hemoglobin 28.6 PG (26-34); Mean Corpuscular Volume 84.5 fL (80-100); Platelet Count 416 X10^3/uL (150-400); Red Cell Distribution Width 14.1 % (11.6-14.8); White Blood Cell Count 6.9 X10^3/uL (4.5-11.0)
[2023-08-26 07:49] LABS: Hemoglobin A1C% w Est Avg Glu 5.4 % (4.0-6.0)
[2023-08-26 07:54] LABS: Alanine Aminotransferase 30 IU/L (<35); Albumin 4.1 g/dL (3.5-5.0); Albumin Globulin Ratio 1.9 (1.0-2.8); Alkaline Phosphatase 53 U/L (38-126); Aspartate Aminotransferase 33 IU/L (14-36); BUN Creatinine Ratio 18.3 (6-22); Bilirubin Total 0.6 mg/dL (0.2-1.3); Blood Urea Nitrogen 19 mg/dL (7-17); Calcium 9.1 mg/dL (8.4-10.2); Carbon Dioxide 29 mmol/L (22-32); Chloride 107 mmol/L (98-107); Cholesterol 168 mg/dL (140-199); Estimated Glomerular Filt Rate 57 mL/min (>60); Globulin 2.2 g/dL (1.7-4.1); Glucose 95 mg/dL (80-110); HDL Cholesterol 65 mg/dL (40-60); HEMOLYSIS < 15 (0-50); LDL Cholesterol Calculated 92 mg/dL (<100); Potassium 4.6 mmol/L (3.4-5.1); Sodium 140 mmol/L (137-145); Total Protein 6.3 g/dL (6.3-8.2); Triglycerides 57 mg/dL (35-150)
[2023-08-26 08:23] LABS: TSH w/ Reflex to FT4 4.77 uIU/mL (0.47-4.68)
[2023-08-26 08:55] LABS: Free T4, Direct Thyroxine 0.87 ng/dL (0.78-2.19)
== END ==
LOC: LAB 06:55
PROVIDERS: PCP Registered Nurse Diabetes Educator; Referring Provider Registered Nurse Diabetes Educator; Visit Provider Registered Nurse Diabetes Educator
DX: R73.01 Impaired fasting glucose (principal); E78.5 Hyperlipidemia, unspecified; R79.89 Other specified abnormal findings of blood chemistry; R74.8 Abnormal levels of other serum enzymes
CPT/HCPCS: 36415; 80053; 80061; 83036; 84439; 84443; 85027

== ENCOUNTER → 2023-11-25 07:06 | Outpatient (CLI) | payer MEDICARE, OTHER, SELFPAY ==
[2020-08-03 12:14] VITALS: BMI 27.1
[2023-11-25 08:04] LABS: Hematocrit 39.6 % (36-46); Hemoglobin 13.5 g/dL (12.0-16.0); Mean Corpuscular Hemoglobin 28.3 PG (26-34); Mean Corpuscular Volume 83.1 fL (80-100); Platelet Count 402 X10^3/uL (150-400); Red Blood Cell Count 4.76 X10^6/uL (4.0-5.2); Red Cell Distribution Width 15.3 % (11.6-14.8); White Blood Cell Count 6.9 X10^3/uL (4.5-11.0)
[2023-11-25 08:20] LABS: BUN Creatinine Ratio 17.9 (6-22); Blood Urea Nitrogen 17 mg/dL (7-17); Calcium 9.5 mg/dL (8.4-10.2); Carbon Dioxide 28 mmol/L (22-32); Chloride 104 mmol/L (98-107); Estimated Glomerular Filt Rate > 60 mL/min (>60); Glucose 98 mg/dL (80-110); HEMOLYSIS < 15 (0-50); Potassium 4.3 mmol/L (3.4-5.1); Sodium 137 mmol/L (137-145)
[2023-11-25 08:54] LABS: TSH w/ Reflex to FT4 5.23 uIU/mL (0.47-4.68)
[2023-11-25 09:19] LABS: Free T4, Direct Thyroxine 0.92 ng/dL (0.78-2.19)
== END ==
PROVIDERS: PCP Registered Nurse Diabetes Educator; Referring Provider Registered Nurse Diabetes Educator; Visit Provider Registered Nurse Diabetes Educator
DX: R79.89 Other specified abnormal findings of blood chemistry (principal); R94.4 Abnormal results of kidney function studies
CPT/HCPCS: 36415; 80048; 84439; 84443; 85027

== ENCOUNTER → 2024-06-01 07:24 | Outpatient (CLI) | payer MEDICARE, OTHER, SELFPAY ==
[2020-08-03 12:14] VITALS: BMI 27.1
[2024-06-01 07:49] LABS: Hematocrit 40.6 % (36-46); Hemoglobin 13.7 g/dL (12.0-16.0); Mean Corpuscular HGB Conc 33.7 % (30-36); Mean Corpuscular Hemoglobin 28.7 PG (26-34); Mean Corpuscular Volume 84.9 fL (80-100); Platelet Count 417 X10^3/uL (150-400); Red Blood Cell Count 4.78 X10^6/uL (4.0-5.2); Red Cell Distribution Width 14.8 % (11.6-14.8)
[2024-06-01 08:12] LABS: Alanine Aminotransferase 39 IU/L (<35); Albumin 4.6 g/dL (3.5-5.0); Albumin Globulin Ratio 2.2 (1.0-2.8); Alkaline Phosphatase 49 U/L (38-126); Aspartate Aminotransferase 41 IU/L (14-36); Bilirubin Total 0.7 mg/dL (0.2-1.3); Blood Urea Nitrogen 18 mg/dL (7-17); Calcium 9.6 mg/dL (8.4-10.2); Carbon Dioxide 27 mmol/L (22-32); Chloride 105 mmol/L (98-107); Cholesterol 188 mg/dL (140-199); Estimated Glomerular Filt Rate 55 mL/min (>60); Globulin 2.1 g/dL (1.7-4.1); Glucose 104 mg/dL (80-110); HDL Cholesterol 66 mg/dL (40-60); HEMOLYSIS < 15 (0-50); LDL Cholesterol Calculated 101 mg/dL (<100); Potassium 4.5 mmol/L (3.4-5.1); Sodium 140 mmol/L (137-145); Total Protein 6.7 g/dL (6.3-8.2); Triglycerides 103 mg/dL (35-150)
[2024-06-01 08:42] LABS: TSH w/ Reflex to FT4 4.93 uIU/mL (0.47-4.68)
[2024-06-01 09:07] LABS: Free T4, Direct Thyroxine 1.03 ng/dL (0.78-2.19)
== END ==
PROVIDERS: PCP Registered Nurse Diabetes Educator; Referring Provider Registered Nurse Diabetes Educator; Visit Provider Registered Nurse Diabetes Educator
DX: E03.8 Other specified hypothyroidism (principal); E78.5 Hyperlipidemia, unspecified; I10 Essential (primary) hypertension; R94.4 Abnormal results of kidney function studies; R79.89 Other specified abnormal findings of blood chemistry; R73.01 Impaired fasting glucose
CPT/HCPCS: 36415; 80053; 80061; 84439; 84443; 85027

== ENCOUNTER → 2024-06-17 07:20 | Outpatient (CLI) | payer MEDICARE, OTHER, SELFPAY ==
[2020-08-03 12:14] VITALS: BMI 27.1
--- NOTE | 2024-06-17 07:21 | DI.US.S_ITS ---
PROCEDURE: US RENAL COMPLETE INDICATIONS: further eval abnormal L renal morphology on outside CT TECHNIQUE: Real-time scanning was performed of the kidneys and bladder, with image documentation. COMPARISON: None. FINDINGS: Kidneys: Kidneys are normal in size. Right kidney measures 11.2 cm long; left kidney measures 10.5 cm long. Right renal cortical thickness is 1.7 cm; left renal cortical thickness is 1.9 cm. Renal cortical echotexture is normal. Right-sided trace hydronephrosis No suspicious solid mass lesions. Bladder: Pre-void bladder volume is 187 mL. Post-void residual is 7 mL. Pre-void images demonstrate no intraluminal masses or stones. On pre-void images, bilateral ureteral jets are noted with color Doppler interrogation. (Of note, ureteral jets may not be detectable in up to 25% of cases due to insufficient differences in specific gravity between ureteral and bladder urine). Miscellaneous: No free pelvic fluid. IMPRESSION: Trace right hydronephrosis. Unremarkable left renal ultrasound appearance. Consider follow-up CT abdomen and pelvis with contrast renal mass protocol. Approved by: Jonnathan Nath M.D. on 06/17/2024 at 16:17
== END ==
PROVIDERS: PCP Registered Nurse Diabetes Educator; Referring Provider Registered Nurse Diabetes Educator; Visit Provider Registered Nurse Diabetes Educator
DX: R93.422 Abnormal radiologic findings on diagnostic imaging of left kidney (principal)
CPT/HCPCS: 76770

== ENCOUNTER → 2024-06-28 07:31 | Outpatient (CLI) | payer MEDICARE, OTHER, SELFPAY ==
[2020-08-03 12:14] VITALS: BMI 27.1
--- NOTE | 2024-06-28 07:35 | DI.CT.S_ITS ---
PROCEDURE: CT IVP A/P W/WO INDICATIONS: further eval abnormal L renal morphology TECHNIQUE: Optional 5 mm thick noncontrast images acquired from the diaphragm to the symphysis pubis. Arterial phase imaging was obtained through the kidneys utilizing 3 mm thick slices. These images or from above the diaphragms to the iliac crests. After the administration of intravenous contrast, 5 mm thick images acquired from the diaphragm to the symphysis pubis after a 10-minute delay. 2 mm thick coronal and sagittal reformats were then performed of the kidneys and ureters. For radiation dose reduction, the following was used: automated exposure control, adjustment of mA and/or kV according to patient size. COMPARISON: [facility], CT, CT ABDOMEN PELVIS W CON, 12/10/2019, 9:28. [facility], US, US RENAL COMPLETE, 06/17/2024, 7:47. FINDINGS: Image quality: Diagnostic. Kidneys and Ureters: Both kidneys are normal in size, without hydronephrosis or nephrolithiasis. No perinephric fat stranding. There is normal bilateral renal enhancement. Renal calyces appear normal in morphology when filled with contrast. Opacified portions of both ureters demonstrate normal caliber Bladder: Bladder wall thickness is normal. No calcified bladder stones. OTHER: Lower chest: Unremarkable. Liver: No solid mass. Gallbladder: Absent Biliary ducts: No biliary dilation. Pancreas: No ductal dilation. Spleen: Size is within normal limits. Adrenal Glands: No adrenal nodules. Stomach and Bowel: Normal colonic caliber, without significant wall thickening. Mild diverticulosis. Peritoneum: No abnormal intraperitoneal fluid. No free air. Ventral Wall: Small supra umbilical ventral hernia containing fat. Abdominal Nodes: No retroperitoneal or mesenteric adenopathy by size criteria. Vessels: Aorta and inferior vena cava are normal in size. PELVIS: Pelvic Organs: Uterus is surgically absent. No adnexal masses. Pelvic floor relaxation, with pelvic fat descending far below the pubococcygeal line, by about 2.5 cm. Reference sagittal image 113 of series 9. Pelvic Nodes: No enlarged lymph nodes. Miscellaneous: Small bilateral fat containing inguinal hernias. Bones: No aggressive osseous abnormality. IMPRESSION: 1. The protocol utilized for the study included renal arterial phase imaging as well as the typical pre contrast imaging and delayed CT IVP imaging. 2. No significant renal abnormality noted. 3. No renal stone, ureteral stone, hydronephrosis, or findings suspicious for of malignancy. 4. Remote cholecystectomy and hysterectomy. 5. Pelvic floor relaxation. 6. Incidental note made of a small ventral hernia and small bilateral fat containing inguinal hernias. 7. Mild diverticulosis. Dictated by: Josiah Lagos M.D. on 06/28/2024 at 10:11 Approved by: Josiah Lagos M.D. on 06/28/2024 at 10:20
== END ==
LOC: CT 07:34
PROVIDERS: PCP Registered Nurse Diabetes Educator; Referring Provider Registered Nurse Diabetes Educator; Visit Provider Registered Nurse Diabetes Educator
DX: N13.30 Unspecified hydronephrosis (principal); K43.9 Ventral hernia without obstruction or gangrene; K57.90 Diverticulosis of intestine, part unspecified, without perforation or abscess without bleeding; K40.20 Bilateral inguinal hernia, without obstruction or gangrene, not specified as recurrent; N81.89 Other female genital prolapse; R93.422 Abnormal radiologic findings on diagnostic imaging of left kidney; R94.4 Abnormal results of kidney function studies; Z90.49 Acquired absence of other specified parts of digestive tract; Z90.710 Acquired absence of both cervix and uterus
CPT/HCPCS: 74178; Q9967

== ENCOUNTER → 2024-12-01 07:29 | Outpatient (CLI) | payer MEDICARE, OTHER, SELFPAY ==
[2020-08-03 12:14] VITALS: BMI 27.1
[2024-12-01 08:12] LABS: Hemoglobin A1C% w Est Avg Glu 5.6 % (4.0-6.0)
[2024-12-01 08:25] LABS: Alanine Aminotransferase 25 IU/L (<35); Albumin 4.6 g/dL (3.5-5.0); Albumin Globulin Ratio 2.1 (1.0-2.8); Alkaline Phosphatase 55 U/L (38-126); Blood Urea Nitrogen 23 mg/dL (7-17); Calcium 9.6 mg/dL (8.4-10.2); Carbon Dioxide 26 mmol/L (22-32); Chloride 104 mmol/L (98-107); Estimated Glomerular Filt Rate 57 mL/min (>60); Globulin 2.2 g/dL (1.7-4.1); Glucose 102 mg/dL (70-99); HEMOLYSIS < 15 (0-50); Potassium 4.8 mmol/L (3.4-5.1); Sodium 139 mmol/L (137-145); Total Protein 6.8 g/dL (6.3-8.2)
== END ==
PROVIDERS: PCP Registered Nurse Diabetes Educator; Referring Provider Registered Nurse Diabetes Educator; Visit Provider Registered Nurse Diabetes Educator
DX: R73.03 Prediabetes (principal); R94.4 Abnormal results of kidney function studies; R74.8 Abnormal levels of other serum enzymes
CPT/HCPCS: 36415; 80053; 83036